=== PATIENT | male | born 1950 | race Caucasian/White ===

== ENCOUNTER 2016-11-20 12:10 | Emergency (ER) | payer MEDICARE ==
[2016-11-20 13:27] LABS: Hematocrit 40.7 % (42.0-52.0); Hemoglobin 13.2 gm/dL (13.5-18.0); Mean Cell Volume 93.1 fl (78-100); Mean Corpuscular Hemoglobin 30.2 pg (27-31); Mean Corpuscular Hgb Conc 32.4 g/dl (32-36); Mean Platelet Volume 9.8 fl (6.0-9.5); Neutrophil # 4.9 K/mm3 (1.3-6.0); Neutrophil % 74.7 % (42-75.0); Platelet Count 195 K/mm3 (150-450); Red Blood Count 4.37 M/mm3 (4.7-6.0); Red Cell Distribution Width 14.5 % (11.5-14.0); White Blood Count 6.5 K/mm3 (4.0-10.5)
[2016-11-20 13:35] LABS: Prothrombin Time (Patient) 19.3 Seconds (9.4-11.4)
[2016-11-20] MEDS ORDERED: ALBUTEROL SULFATE/IPRATROPIUM 3 ML NEBU IH ONE ×2 (13:35→13:43)
[2016-11-20 13:36] LABS: INR 1.86 INR (0.90-1.10); Partial Thrombolplastin Time 36.2 Seconds (24-32)
[2016-11-20 13:45] LABS: ALT 44 U/L (19-67); AST 27 U/L (0-48); Albumin * 3.3 gm/dl (3.4-5.0); Alkaline Phosphatase * 132 U/L (50-170); Anion Gap 13.1 mmol/L (6.8-13.8); BNP * 961 pg/mL (5-350); BUN/Creatinine Ratio 24.2 (9.0-21.6); Bilirubin, Total 0.7 mg/dL (0.0-1.1); Blood Urea Nitrogen 39 mg/dL (6-23); Ca. Corrected For Albumin 9.5 mg/dL (8.4-10.2); Calcium * 9.3 mg/dL (7.9-10.9); Carbon Dioxide 32.3 mmol/L (24-32.6); Chloride 99 mmol/L (97-106); Glucose * 278 mg/dL (70-110); Potassium 5.4 mmol/L (3.4-4.6); Sodium 139 mmol/L (132-142); Total Protein 7.5 gm/dL (6.2-8.2)
[2016-11-20 13:52] LABS: Troponin I Less than 0.017 ng/ml (0.00-0.10)
[2016-11-20] MEDS ORDERED: CEFEPIME HCL 1 GM in DEXTROSE 5 % IN WATER 100 ML IV ONE ×2 (14:35)
[2016-11-20] MEDS ORDERED: LEVOFLOXACIN/D5W 750 MG in Premix Bag 1 BAG IV ONE (14:35)
--- NOTE | 2016-11-20 14:40 | ERNOTE ---
Dyspnea - Date Date of Service: 11/20/16 - General Presenting Symptoms: shortness of breath Time Seen by Provider: 11/20/16 13:05 Source: patient Exam Limitations: no limitations - Immun/Allergies/Home Medications Immunizations: IMMUNIZATION HX Immunizations Up to Date Yes History of Influenza Vaccine No Hx Pneumococcal Vaccination Yes Allergies/Adverse Reactions: Allergies atenolol Allergy (Verified 11/20/16 12:59) enoxaparin sodium [From Lovenox] Allergy (Verified 11/20/16 12:59) gabapentin Allergy (Verified 11/20/16 12:59) Home Medications: HOME MEDICATIONS Allopurinol [Zyloprim] 300 mg PO DAILY 10/25/16 [Last Taken Unknown] Carvedilol [Coreg] 25 mg PO BID 10/25/16 [Last Taken Unknown] Glimepiride [Amaryl] 2 mg PO DAILY 10/25/16 [Last Taken Unknown] Polyethylene Glycol 3350 [Miralax] 17 gm PO PRN PRN 10/25/16 [Last Taken Unknown ] Ropinirole HCl 5 mg PO HS 10/25/16 [Last Taken Unknown] Simvastatin 40 mg PO HS 10/25/16 [Last Taken Unknown] Spironolactone [Aldactone] 25 mg PO BID 10/25/16 [Last Taken Unknown] Tamsulosin HCl [Flomax] 0.4 mg PO DAILY 10/25/16 [Last Taken Unknown] Aspirin [Aspirin Enteric Coated] 81 mg PO DAILY 11/20/16 [Last Taken Unknown] Levofloxacin [Levaquin] 750 mg PO DAILY #13 tab 11/20/16 [Last Taken Unknown] Lisinopril [Zestril] 10 mg PO DAILY 11/20/16 [Last Taken Unknown] Metolazone [Zaroxolyn] 2.5 mg PO DAILY PRN 11/20/16 [Last Taken Unknown] Potassium Chloride [Klor-Con M20] 20 meq PO DAILY 11/20/16 [Last Taken Unknown] Prednisone [Deltasone] 1.5 tab PO BID #42 tablet 11/20/16 [Last Taken Unknown] Terazosin HCl [Hytrin] 1 mg PO DAILY 11/20/16 [Last Taken Unknown] Torsemide [Demadex] 80 mg PO BID 11/20/16 [Last Taken Unknown] Warfarin Sodium [Coumadin] 2.5 mg PO TUFR 11/20/16 [Last Taken Unknown] Warfarin Sodium [Coumadin] 5 mg PO 11/20/16 [Last Taken Unknown] oxyCODONE HCL/ACETAMINOPHEN [Percocet 5 MG/325 MG] 2 tab PO QID PRN 11/20/16 [ Last Taken Unknown] - History of Present Illness Narrative: This is a 66-year-old man with both COPD and congestive heart failure. For the last 2 weeks he has been having worsening redness of breath and cough, productive only of white phlegm. He has not really been weighing himself daily , so he doesn't know what his weights been doing. He has not had a fever. He is concerned that he has pneumonia. He came to the emergency room by private vehicle today because of the worsening of his condition. Severity: moderate Treatment ACCOUNT REVIEW SPECIALIST: by patient, albuterol Initiating event: Reports: unknown Frequency of episodes: Reports: occassional episodes Modifying Factors - (Improves): Reports: nothing Modifying Factors (Worsens): Reports: activity, coughing Associated Symptoms-Dyspnea: Reports: cough, wheezing, lightheadedness Prior Treatment: Reports: recently seen Review of Systems - Review of Systems Constitutional: Present: malaise EYE: Present: no symptoms reported ENT: Present: no symptoms reported Respiratory: Present: See HPI Cardiology: Present: See HPI Gastrointestinal/Abdominal: Present: no symptoms reported Genitourinary: Present: no symptoms reported Musculoskeletal: Present: no symptoms reported Skin: Present: no symptoms reported Neurological: Present: no symptoms reported Endocrine: Present: no symptoms reported Hematologic/Lymphatic: Present: no symptoms reported Psych: Present: no symptoms reported All Other Systems: All systems neg except as marked - Patient's Past Medical History Patient History - Medical: Diabetes Type 2 Patient History - Cardiac/Respiratory: Atrial Fibrillation, CHF, CVA/Stroke, Hypertension, Hyperlipidemia, Myocardial Infarction, Sleep Apnea Patient History - Cancer: No Hx of Cancer Patient History - Surgical Procedures: Appendectomy, Cardiac stent, Pacemaker, Other - Family History Mother Family History - Medical: Diabetes Type 2 Family History - Cardiac/Respiratory: Hypertension - Social History Living Situations: home Smoking Status: Never smoker Alcohol Use: none Drug Use: none Physical Exam - Physical Exam General Appearance: Present: wd/wn, alert, mild distress, obese Eye Exam: Normal inspection: bilateral, PERRL: bilateral, EOMI: bilateral Ears, Nose, Throat: Present: normal ENT inspection, hearing grossly normal Neck: Present: normal inspection, nontender Respiratory: Present: decreased breath sounds, wheezing Cardiovascular/Chest: Present: regular rate, rhythm, no murmur Gastrointestinal/Abdominal: Present: normal bowel sounds, nontender, nondistended, soft, no organomegaly Back Exam: Present: normal inspection Extremity Exam: Present: pedal edema Neurological Exam: Present: alert, oriented, normal mood/affect Skin Exam: Present: normal color, warm/dry ED Progress - Results and Orders Patient's Lab Results:: I have reviewed the patient's lab results. - Vital Signs Patient's Vital Signs:: I have reviewed the patient's vital signs. Vital Signs: Vital Signs 11/20/16 11/20/16 11/20/16 12:51 13:44 13:59 Temperature 35.7 C L Pulse Rate 66 67 108 H Respiratory 18 18 16 Rate Blood Pressure 119/68 136/50 O2 Sat by Pulse 93 94 94 Oximetry 11/20/16 14:14 Temperature Pulse Rate 71 Respiratory 16 Rate Blood Pressure 102/55 O2 Sat by Pulse 96 Oximetry - EKG EKG read: Interp. by me - electronically paced rhythm - X-Ray X-Ray #1 X-Ray: chest Interpretation: Reviewed by me - CXR is non acute. - Progress/Reassessment Chief Complaint: Dyspnea Progress:: Improved Departure Clinical Impression: Acute exacerbation of COPD with asthma, Lactic acidosis - Departure Disposition: Home self-care Condition: Good Instructions: Chronic Obstructive Pulmonary Disease Exacerbation, [id number] Additional Instructions: Followup with Dr. Jones end of next week. Call early Tuesday for an appt at the end of the week. Obtain an EXTRA protime test on Tuesday morning. Referrals: Skyler Mi MD [Primary Care Provider] - Prescriptions: Levofloxacin [Levaquin] 750 mg PO DAILY #13 tab Prednisone [Deltasone] 1.5 tab PO BID #42 tablet
[2016-11-20] MEDS: NORMAL SALINE 1,000 ML IV SCH ×2 (15:09→16:36)
[2016-11-20] MEDS ORDERED: ALBUTEROL SULFATE 2.5 MG/0.5 ML VIAL.NEB IH ONE ×3 (15:47→16:09)
[2016-11-20 17:01] VITALS: BP 137/104
== END 2016-11-20 17:32 | disposition home or self-care (01) ==
LOC: ER 12:10
DX: J44.1 Chronic obstructive pulmonary disease with (acute) exacerbation (principal); J45.901 Unspecified asthma with (acute) exacerbation; E87.2 Acidosis; Z79.01 Long term (current) use of anticoagulants; I10 Essential (primary) hypertension; I48.91 Unspecified atrial fibrillation; I50.9 Heart failure, unspecified; I63.9 Cerebral infarction, unspecified; E78.5 Hyperlipidemia, unspecified; E11.9 Type 2 diabetes mellitus without complications; Z95.5 Presence of coronary angioplasty implant and graft; Z95.0 Presence of cardiac pacemaker

== ENCOUNTER 2016-12-27 10:10 | Emergency (ER) | payer MEDICARE ==
[2016-12-27] MEDS ORDERED: ONDANSETRON HCL/PF 2 MG/ML VIAL ONE (10:21)
[2016-12-27] MEDS ORDERED: ONDANSETRON 4 MG TAB.RAPDIS ONE (10:23)
--- OUTSIDE RECORDS SUMMARY | 2016-12-27 10:24 | XMS REPORT | Continuity of Care Document ---
:1950 Author Organization [facility] Address [place] [address] Phone [phone] Care Team Providers Name Role Phone Skyler Jones Primary Care Provider [phone] Source Comments This disclosure is being made pursuant to the Care Everywhere program, applicable federal and state laws, and may not contain all informaitonavailable regarding this patient.[facility] ([facility] Active Allergies and Adverse Reactions Allergen Noted Date Severity Reactions Comments Atenolol 11/09/2016 Unknown Enoxaparin 11/09/2016 Unknown Gabapentin 11/09/2016 Unknown Current Medications Prescription Sig. Disp. Refills Start Date End Date Status allopurinol 100 mg Take 300 mg by Active tablet mouth daily. carvedilol 25 mg tablet Take 25 mg by Active mouth 2 times daily with meals. cyclobenzaprine PO Take 30 mg by Active mouth 2 times daily. glimepiride 2 mg tablet Take 2 mg by Active mouth every morning. metOLazone 2.5 mg Take 2.5 mg by Active tablet mouth daily. Prn weight gain polyethylene glycol Take 17 g by Active 3350 17 gram packet mouth daily as needed. potassium chloride 20 Take 20 mEq by Active mEq tablet mouth daily. rOPINIRole 5 mg tablet Take 5 mg by Active mouth at bedtime. simvastatin 40 mg Take 40 mg by Active tablet mouth every evening. spironolactone 25 mg Take 25 mg by Active tablet mouth 2 times daily. terazosin 1 mg capsule Take 1 mg by Active mouth at bedtime. warfarin 5 mg tablet Take 5 mg by Active mouth daily. As instructed albuterol-ipratropium Use 3 mL by Active 2.5-0.5 mg/3 mL inhalation every inhalation solution 6 hours as needed. OXYCODONE Take by mouth as Active HCL/ACETAMINOPHEN needed. (PERCOCET PO) aspirin 81 mg EC tablet Take 1 tablet (81 11 11/09/2016 Active mg total) by mouth daily. torsemide 100 mg tablet Take 1 tablet 30 tablet 11/09/2016 Active (100 mg total) by mouth daily. lisinopril 10 mg tablet Take 1 tablet (10 30 tablet 11/09/2016 Active mg total) by mouth daily. Active Problems Problem Noted Date Coronary artery disease Myocardial infarction, old Pacemaker Atrial fibrillation Diabetes mellitus Hypertension Hyperlipidemia Ischemic cardiomyopathy Most Recent Encounters Date Type Specialty Providers Description 12/21/2016 Office Visit Heart and Alley Huber MD Chief Comp: Patient Reported Reason For Visit 11/24/2016 Telephone Cardiac Rehabilitation Alley Jimenez Chief Comp: Results 11/09/2016 Office Visit Heart and Alley Huber MD Dx: Coronary artery disease involving [place] coronary artery of [place] heart without angina pectoris (Primary Dx) Social History Tobacco Use Types Packs/Day Years Used Date Never Smoker Smokeless Tobacco: Never Used Last Filed Vital Signs Vital Sign Reading Time Taken Blood Pressure 118/58 11/09/2016 11:37 AM CONSULTING SOFTWARE ENGINEER Pulse 72 11/09/2016 11:37 AM CONSULTING SOFTWARE ENGINEER Temperature - - Respiratory Rate - - Height 1.829 m (6') 11/09/2016 11:37 AM CONSULTING SOFTWARE ENGINEER Weight 146.965 kg (324 lb) 11/09/2016 11:37 AM CONSULTING SOFTWARE ENGINEER Body Mass Index 43.93 11/09/2016 11:37 AM CONSULTING SOFTWARE ENGINEER Oxygen Saturation - - Plan of Care Date Type Specialty Providers Description 01/18/2017 Appointment Heart and Vascular Alley Jimenez MD Chief Comp: Patient [address] [employer] [place] [address] Visit [phone] (Fax) 01/18/[address] [facility] Alley Jmienez MD Chief Comp: Patient [address] [employer] [place] [address] Visit [phone] (Fax) 02/15/2017 Appointment Alley Garrison MD [address] [place] [address] [phone] (Fax) Chief Comp: Patient Kenneth Vasquez MD [address] [place] [address] [phone] (Fax) Reported Reason For Visit Health Maintenance Due Date Last Done Comments HCV Screening 1950 Hepatitis B Vaccine (1 of 3 - Primary Series) 1950 Tdap Vaccine 1962 DIABETIC: Cholesterol 1969 Diabetic: Hdl 1969 DIABETIC: Hemoglobin A1C 1969 Diabetic: Ldl 1969 DIABETIC: Microalbumin 1969 DIABETIC: Triglycerides 1969 Td Vaccine 1969 Colonoscopy 07/03/2001 Prostate Cancer Screening 2001 Zoster Vaccine 2011 Influenza Vaccine: Seasonal (#1) 05/31/2016 Pneumococcal Vaccine (1 of 2 - PCV13) 2016 DIABETIC: Foot Exam 11/06/2016 DIABETIC: Retinal Eye Exam 11/06/2016 Results from Last 3 Months Not on file
[2016-12-27 10:56] LABS: Hematocrit 45.3 % (42.0-52.0); Hemoglobin 14.7 gm/dL (13.5-18.0); Mean Cell Volume 92.1 fl (78-100); Mean Corpuscular Hemoglobin 29.9 pg (27-31); Mean Corpuscular Hgb Conc 32.5 g/dl (32-36); Mean Platelet Volume 9.9 fl (6.0-9.5); Neutrophil # 9.8 K/mm3 (1.3-6.0); Neutrophil % 82.4 % (42-75.0); Platelet Count 252 K/mm3 (150-450); Red Blood Count 4.92 M/mm3 (4.7-6.0); Red Cell Distribution Width 14.5 % (11.5-14.0); White Blood Count 11.9 K/mm3 (4.0-10.5)
--- NOTE | 2016-12-27 11:06 | ERNOTE ---
Neuro HPI ER Record Date of Service: 12/27/16 Presenting Symptoms: parasthesia Time Seen by Provider: 12/27/16 10:16 Source: patient Exam Limitations: no limitations Immunizations: IMMUNIZATION HX Immunizations Up to Date Yes History of Influenza Vaccine No Hx Pneumococcal Vaccination Yes Allergies/Adverse Reactions: Allergies Allergy/AdvReac Type Severity Reaction Status Date / Time atenolol Allergy Verified 11/20/16 12:59 enoxaparin sodium Allergy Verified 11/20/16 12:59 [From Lovenox] gabapentin Allergy Verified 11/20/16 12:59 Home Medications: HOME MEDICATIONS Allopurinol [Zyloprim] 300 mg PO DAILY 10/25/16 [Last Taken Unknown] Carvedilol [Coreg] 25 mg PO BID 10/25/16 [Last Taken Unknown] Glimepiride [Amaryl] 2 mg PO DAILY 10/25/16 [Last Taken Unknown] Polyethylene Glycol 3350 [Miralax] 17 gm PO PRN PRN 10/25/16 [Last Taken Unknown ] Ropinirole HCl 5 mg PO HS 10/25/16 [Last Taken Unknown] Simvastatin 40 mg PO HS 10/25/16 [Last Taken Unknown] Spironolactone [Aldactone] 25 mg PO BID 10/25/16 [Last Taken Unknown] Tamsulosin HCl [Flomax] 0.4 mg PO DAILY 10/25/16 [Last Taken Unknown] Aspirin [Aspirin Enteric Coated] 81 mg PO DAILY 11/20/16 [Last Taken Unknown] Levofloxacin [Levaquin] 750 mg PO DAILY #13 tab 11/20/16 [Last Taken Unknown] Lisinopril [Zestril] 10 mg PO DAILY 11/20/16 [Last Taken Unknown] Metolazone [Zaroxolyn] 2.5 mg PO DAILY PRN 11/20/16 [Last Taken Unknown] Potassium Chloride [Klor-Con M20] 20 meq PO DAILY 11/20/16 [Last Taken Unknown] Prednisone [Deltasone] 1.5 tab PO BID #42 tablet 11/20/16 [Last Taken Unknown] Terazosin HCl [Hytrin] 1 mg PO DAILY 11/20/16 [Last Taken Unknown] Torsemide [Demadex] 80 mg PO BID 11/20/16 [Last Taken Unknown] Warfarin Sodium [Coumadin] 2.5 mg PO TUFR 11/20/16 [Last Taken Unknown] Warfarin Sodium [Coumadin] 5 mg PO 11/20/16 [Last Taken Unknown] oxyCODONE HCL/ACETAMINOPHEN [Percocet 5 MG/325 MG] 2 tab PO QID PRN 11/20/16 [ Last Taken Unknown] - History of Present Illness Narrative: Patient presents to the ER after having had a recent fall. Patient states that he does have all falls frequently however normally he is able to get up off the floor however this time he had difficulty arising and and an ambulance had to be called to provide assistance. He states that he has chronic neuropathy of unknown origin because of this and the numbness in his feet he has he says is the source for his falling. He states that he did bump his head and he does have a low-grade headache subsequent to this and he further states he is on anticoagulant therapy. Onset: other - upon arising Severity: mild Context: fall, injury - head - Character of Deficits Altered sensation: Present: other - chronic numbness in his feet Baseline Cognition: Present: alert, oriented x 4 Associated Symptoms: Reports: headache Prior Treament: Reports: treated by physician, similar symptoms before Review of Systems - Review of Systems Constitutional: Present: See HPI EYE: Present: no symptoms reported ENT: Present: no symptoms reported Respiratory: Present: no symptoms reported Cardiology: Present: no symptoms reported Gastrointestinal/Abdominal: Present: no symptoms reported Genitourinary: Present: no symptoms reported Musculoskeletal: Present: no symptoms reported Skin: Present: no symptoms reported Neurological: Present: numbness - chronic Endocrine: Present: no symptoms reported Hematologic/Lymphatic: Present: no symptoms reported Psych: Present: no symptoms reported - Patient's Past Medical History Patient History - Medical: Diabetes Type 2, Other - neuropathy Patient History - Cardiac/Respiratory: Atrial Fibrillation, CHF, CVA/Stroke, Myocardial Infarction, Pneumonia Patient History - Cancer: No Hx of Cancer Patient History - Surgical Procedures: Appendectomy, Cardiac stent, Pacemaker, Other Patient History - Other: None - Family History Mother Family History - Medical: Diabetes Type 2 Family History - Cardiac/Respiratory: Hypertension - Social History Living Situations: home Abuse History: No History of abuse Psych History: No pertinent hx Alcohol Use: none Drug Use: none - Immunizations Immunizations Up to Date: Yes Hx Pneumococcal Vaccination: Yes History of Influenza Vaccine: No Physical Exam - Physical Exam General Appearance: Present: wd/wn, alert, mild distress Eye Exam: Normal inspection: bilateral, PERRL: bilateral Ears, Nose, Throat: Present: normal ENT inspection, hearing grossly normal, normal pharynx Neck: Present: normal inspection, nontender Respiratory: Present: no respiratory distress, normal breath sounds, no accessory muscle use, chest nontender, lungs clear Cardiovascular/Chest: Present: regular rate, rhythm, no murmur, normal peripheral pulses Gastrointestinal/Abdominal: Present: normal bowel sounds, nontender, nondistended, soft, no organomegaly Rectal Exam: Present: deferred Back Exam: Present: normal inspection, normal range of motion Extremity Exam: Present: normal inspection, non-tender, no edema, normal range of motion Neurological Exam: Present: alert, oriented, normal mood/affect, other - chronic numbness to both feet Skin Exam: Present: normal color, warm/dry Lymphatic Exam: Present: no adenopathy [place] Coma Scale - Assess Eye Opening: Spontaneous Motor: Obeys Commands Verbal: Oriented - Total Coma Scale Total: 15 ED Progress - Results and Orders Patient's Lab Results:: I have reviewed the patient's lab results. - Vital Signs Patient's Vital Signs:: I have reviewed the patient's vital signs. Vital Signs: Vital Signs 12/27/16 12/27/16 10:21 10:44 Temperature 35.9 C L Pulse Rate 88 61 Respiratory 28 H Rate Blood Pressure 137/104 O2 Sat by Pulse 93 Oximetry - EKG EKG: other - paced - X-Ray X-Ray #1 X-Ray: chest Interpretation: Reviewed by me - CT/Ultrasound CT/Ultrasound Narrative: Patient's CT results were reviewed with radiologist and patient was found to not have any mass effect or hemorrhagic CVA. Old posterior CVA appears to have been present but no acute findings were noted at this time - Progress/Reassessment Chief Complaint: CerebroVascular Accident Progress:: Unchanged - Transfer of Care Expected Disposition: Admit Plan - Plan Plan: While the patient does not appear to have had a hemorrhagic CVA certainly a TIA is more than reasonable to entertain. Patient however is in acute renal failure as well as being hyperkalemic and that these will need to be treated patient be admitted to a monitored bed for both adjusting of his potassium levels as well as a possible nephrology consult regarding his acute renal failure. A Zarate catheter was placed in the patient also to make sure that there is no post renal obstruction present. Departure Clinical Impression: Hyperkalemia Acute renal failure (ARF) Qualifiers: Acute renal failure type: unspecified Qualified Code(s): N17.9 - Acute kidney failure, unspecified TIA (transient ischemic attack) Qualifiers: Transient cerebral ischemia type: unspecified Qualified Code(s): G45.9 - Transient cerebral ischemic attack, unspecified - Departure Disposition: [facility] Condition: Fair - Critical Care Total Time (mins): 40 Critical Care: THE patient does have chronic neuropathy which could be the source of it his frequent falling we had to do emergent intervention to attempt to bring the potassium down as this could be leading to a cardiac dysrhythmia as well.
[2016-12-27 11:07] LABS: Prothrombin Time (Patient) 19.7 Seconds (9.4-11.4)
[2016-12-27 11:08] LABS: INR 1.89 INR (0.90-1.10)
[2016-12-27 11:10] LABS: Albumin * 3.5 gm/dl (3.4-5.0); Anion Gap 16.8 mmol/L (6.8-13.8); BUN/Creatinine Ratio 26.7 (9.0-21.6); Bilirubin, Total 1.1 mg/dL (0.0-1.1); Ca. Corrected For Albumin 10.2 mg/dL (8.4-10.2); Calcium * 10.1 mg/dL (7.9-10.9); Carbon Dioxide 26.6 mmol/L (24-32.6); Potassium 6.4 mmol/L (3.4-4.6); Total Protein 8.1 gm/dL (6.2-8.2)
[2016-12-27 11:16] LABS: Urine Bilirubin Negative (NEGATIVE); Urine Blood Negative /ul (NEGATIVE); Urine Ketone Negative (NEGATIVE); Urine Nitrite Negative (NEGATIVE); Urine Protein Negative (NEGATIVE); Urine Specific Gravity 1.015 SP.GR. (1.005-1.030); Urine Urobilinogen Normal (NORMAL)
[2016-12-27] MEDS ORDERED: CALCIUM GLUCONATE 4.65 MEQ/10 ML VIAL IV ONE ×4 (11:23→19:00)
[2016-12-27] MEDS ORDERED: DEXTROSE 50%-WATER 50 ML SYRG IV ONE ×2 (11:23→18:06)
[2016-12-27] MEDS ORDERED: SODIUM POLYSTYRENE SULFON/SORB 15 G/60 ML BTL PO ONE ×3 (11:23→18:07)
[2016-12-27] MEDS ORDERED: INSULIN REGULAR, HUMAN 100 UNITS/ML VIAL IV ONE ×2 (11:23→18:06)
[2016-12-27] MEDS ORDERED: SODIUM BICARBONATE 1 MEQ/ML SYRG IV ONE ×3 (11:24→18:07)
[2016-12-27 11:29] LABS: Urine Appearance Clear; Urine Color Yellow; Urine RBC None Seen /hpf (0-5); Urine WBC None Seen /hpf (0-5)
[2016-12-27 11:30] LABS: Urine Bacteria None Seen
[2016-12-27] MEDS ORDERED: SODIUM POLYSTYRENE SULFON/SORB 15 G/60 ML BTL ONE ×2 (11:30→19:01)
[2016-12-27] MEDS ORDERED: INSULIN REGULAR, HUMAN 100 UNITS/ML VIAL ONE (11:31)
[2016-12-27] MEDS ORDERED: DEXTROSE 50%-WATER 50 ML SYRG ONE ×2 (11:31→19:01)
--- OUTSIDE RECORDS SUMMARY | 2016-12-27 12:17 | XMS REPORT | Continuity of Care Document ---
:1950 Author Organization [facility] ([facility]) [place] [address] Phone [phone] Care Team Providers Name Role Phone Skyler Jones Primary Care Provider [phone] Source Comments This disclosure is being made pursuant to the Care Everywhere program, applicable federal and state laws, and may not contain all informaitonavailable regarding this patient.[facility] ([facility]) Active Allergies and Adverse Reactions Allergen Noted [...] Huber MD Dx: Coronary artery disease involving [place] coronary artery of [place] heart without angina pectoris (Primary Dx) Social History Tobacco Use Types Packs/Day Years Used Date Never Smoker Smokeless Tobacco: Never Used Last Filed Vital Signs Vital Sign Reading Time Taken Blood Pressure 118/58 11/09/2016 11:37 AM SNOW REMOVAL SUPERVISOR Pulse 72 11/09/2016 11:37 AM SNOW REMOVAL SUPERVISOR Temperature - - Respiratory Rate - - Height 1.829 m (6') 11/09/2016 11:37 AM SNOW REMOVAL SUPERVISOR Weight 146.965 kg (324 lb) 11/09/2016 11:37 AM SNOW REMOVAL SUPERVISOR Body Mass Index 43.93 11/09/2016 11:37 AM SNOW REMOVAL SUPERVISOR Oxygen Saturation - - Plan of Care Date Type Specialty Providers Description 01/18/2017 Appointment Heart and Vascular Alley Jimenez MD Chief Comp: Patient [address] [address] Visit [phone] (Fax) 01/18/[address] [facility] Alley Jimenez MD Chief Comp: Patient [address] [place] [address] Visit [phone] (Fax) 02/15/2017 Appointment Alley Garrison MD [address] [place] [address] [phone] (Fax) Chief Comp: Patient Kenneth Vasquez MD [address] [place] [address] [phone] (Fax) Reported Reason For Visit Health Maintenance [...]
[2016-12-27 13:10] LABS: Urine Bilirubin Negative (NEGATIVE); Urine Blood Negative /ul (NEGATIVE); Urine Ketone Negative (NEGATIVE); Urine Nitrite Negative (NEGATIVE); Urine Protein Negative (NEGATIVE); Urine Urobilinogen Normal (NORMAL)
[2016-12-27 13:11] LABS: Urine Appearance Clear; Urine Color Yellow
[2016-12-27 13:12] LABS: Urine Bacteria None Seen; Urine RBC None Seen /hpf (0-5); Urine WBC None Seen /hpf (0-5)
[2016-12-27] MEDS ORDERED: NORMAL SALINE 1,000 ML IV ONE (13:17)
[2016-12-27] MEDS ORDERED: NORMAL SALINE 500 ML in NORMAL SALINE 1,000 ML IV ONE (13:43)
[2016-12-27] MEDS ORDERED: NOREPINEPHRINE BITARTRATE 4 MG in DEXTROSE 5 % IN WATER 496 ML IV PRN ×2 (13:56)
[2016-12-27] MEDS ORDERED: NORMAL SALINE 1,000 ML in NORMAL SALINE 1,000 ML IV ONE (15:22)
--- NOTE | 2016-12-27 16:35 | OR ---
Anesthesia Procedure Note - Anesthesia Procedure Note Date of Service: 12/27/16 Narrative: Vital Signs - Last Taken Temp 35.5 C L 12/27/16 12:41 Pulse 121 H 12/27/16 14:16 Resp 21 H 12/27/16 14:16 BP 102/51 12/27/16 14:16 Pulse Ox 93 12/27/16 14:16 O2 Oxygen Delivery Method Nasal Cannula 12/27/16 16:30 ANESTHESIA PROCEDURE NOTE Date of Procedure: 12/27/2016. Time of procedure: 1500. Performed by: Howard Lyles CRNA Plant Protection Supervisor: None. Preprocedure diagnosis: Need for central line placement. Post procedure diagnosis: Same. Procedure: Unsuccessful ultrasound-guided PICC line insertion. Indications: Is a 66-year-old male in the emergency room who is in need of a peripherally inserted central line for IV and vasopressor therapy. Findings: See below. Details of the procedure: Under ultrasound guidance the right cephalic vein was visualized. Skin over the intended target site was cleansed with ChloraPrep. The patient was draped in sterile fashion. The skin over the intended target site was anesthetized with 1% lidocaine. Under direct ultrasound visualization the vein was cannulated with a 20-gauge IV catheter. Dark red blood was noted from the catheter. A 0.45 mm guidewire was inserted through the IV catheter and IV catheter was removed intact. A skin susan was made at the guidewire insertion site with a scalpel. The 5 Malay vessel dilator was inserted over the guidewire and the guidewire was removed intact. Dark red blood was noted from the vessel dilator. The PICC line was inserted to a depth of 52 cm with some difficulty and the vessel dilator was peeled away. Dark red blood was noted from both ports of the PICC line. PICC line was flushed with sterile normal saline solution. A sterile dressing was then applied over the PICC line insertion site. EBL: Minimal. Fluids: N/A. Specimen: N/A. Post procedure condition: The patient tolerated the procedure well. No complications were noted. Chest x-ray revealed the placement of the PICC line to be in the superior vena cava, however there was a kink in the catheter proximal to the catheter tip. I discussed the findings with the radiologist and determined that it would be best to remove the catheter. The catheter was then removed intact by the emergency room nurse and a sterile dressing was applied to the insertion site. Thank you for this consultation. Howard Lyles CRNA
[2016-12-27 17:47] LABS: Anion Gap 20.1 mmol/L (6.8-13.8); BUN/Creatinine Ratio 25.6 (9.0-21.6); Calcium * 9.3 mg/dL (7.9-10.9); Carbon Dioxide 21.9 mmol/L (24-32.6); Estimated Creat Clear 17.8
[2016-12-27] MEDS ORDERED: NORMAL SALINE IV ONE (18:14)
[2016-12-27] MEDS ORDERED: [UNRECOGNIZED DRUG - OTHER] IV ONE (18:14)
[2016-12-27] MEDS ORDERED: ALBUTEROL SULFATE 2.5 MG/0.5 ML VIAL.NEB IH SCH (18:15)
[2016-12-27] MEDS ORDERED: ALBUTEROL SULFATE 2.5 MG/0.5 ML VIAL.NEB IH ONE (19:32)
[2016-12-27 23:09] VITALS: BP 98/50
== END 2016-12-27 20:05 | disposition short-term general hospital (02) ==
LOC: ER 10:10 → UNDOADMIN 12:12 → MS 12:12 → SCU 12:41 → MS 12:41 → ER 20:05
PROC: 0T9B70Z Drainage of Bladder with Drainage Device, Via Natural or Artificial Opening (ICD-10-PCS; principal; 2016-12-27)
DX: E87.5 Hyperkalemia (principal); N17.9 Acute kidney failure, unspecified; G45.9 Transient cerebral ischemic attack, unspecified

== ENCOUNTER 2017-02-26 20:02 | Observation (INO) | payer MEDICARE ==
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
--- OUTSIDE RECORDS SUMMARY | 2017-02-26 20:21 | XMS REPORT | Continuity of Care Document ---
:1950 Author Organization [facility] ([facility]) Address [address] [place] [address] Phone [phone] Care Team Providers Name Role Phone Skyler Jones Primary Care Provider [phone] Source Comments This disclosure is being made pursuant to the Care Everywhere program, applicable federal and state laws, and may not contain all informaitonavailable regarding this patient.[facility] ([facility]) Active Allergies and Adverse Reactions Allergen Noted Date Severity Reactions Comments Atenolol 11/09/2016 Unknown Enoxaparin 11/09/2016 Unknown Gabapentin 11/09/2016 Unknown Current Medications Prescription Sig. Disp. Refills Start Date End Date Status carvedilol 25 mg tablet Take 25 mg by mouth 2 Active times daily. glimepiride 2 mg tablet Take 4 mg by mouth Active every morning. polyethylene glycol Take 17 g by mouth Active 3350 17 gram packet daily as needed. rOPINIRole 5 mg tablet Take 5 mg by mouth at Active bedtime. simvastatin 40 mg Take 40 mg by mouth Active tablet every evening. spironolactone 25 mg Take 25 mg by mouth Active tablet daily. warfarin 5 mg tablet Take 5 mg by mouth 4 Active times weekly. As instructed albuterol-ipratropium Use 3 mL by Active 2.5-0.5 mg/3 mL inhalation every 4 inhalation solution hours as needed. aspirin 81 mg EC tablet Take 1 tablet (81 mg 11 11/09/2016 Active total) by mouth daily. amitriptyline 10 mg Take 20 mg by mouth 2 Active tablet times daily. tamsulosin 0.4 mg Take 0.4 mg by mouth Active capsule daily. SITagliptin (JANUVIA) Take 100 mg by mouth Active 100 mg tablet daily. allopurinol 300 mg Take 300 mg by mouth Active tablet daily. cyclobenzaprine 10 mg Take 20 mg by mouth Active tablet at bedtime. torsemide 20 mg tablet Take 80 mg by mouth 2 Active times daily. metolazone PO Take by mouth as Active needed. oxyCODONE-acetaminophen Take 1 tablet by Active 5-325 mg per tablet mouth every 4 hours as needed. Do NOT exceed 4000 mg of acetaminophen per 24 hours. terazosin PO Take by mouth daily. Active gabapentin PO Active Active Problems Problem Noted Date JAXSON on CPAP 02/15/2017 Heart block AV complete, secondary to AV node ablation 02/15/2017 Abdominal pain 12/29/2016 Overview: Colonoscopy today with GI Acute kidney injury superimposed on chronic kidney disease 12/28/2016 Overview: Continue to monitor, consult nephrology. No dialysis recommended, renal US with doppler Coronary artery disease Myocardial infarction, old Biventricular ICD (implantable cardioverter-defibrillator) in place, [employer]tr[employer] Persistent atrial fibrillation Diabetes mellitus Hypertension Hyperlipidemia Ischemic cardiomyopathy Overview: CARDIOVASCULAR PROCEDURES ECHO Echo:Mild to moderately decreased LV systolic function. LV Ejection Fraction= 40-50% Apical segments with akinesis to dyskinesis and no obvious thrombus. The aortic Sinus(es) of Valsalva are moderately dilated. 12/28/2016 Resolved Problems Problem Noted Date Resolved Date Paced rhythm on manager cardiac 12/29/2016 01/18/2017 Overview: Monitoring with help of EP Hyperkalemia 12/27/2016 01/02/2017 Hypotension 12/27/2016 01/02/2017 Most Recent Encounters Date Type Specialty Providers Description 02/15/2017 Office Visit Alley Oakley MD Dx: Biventricular ICD Vascular Kenneth Vasquez, (implantable MD cardioverter-defibrill AschoOlivia osorio, ator) in place, PRINCIPAL [employer]OUD ARCHITECT Med[employer] (Primary Dx) 01/18/2017 Office Visit Alley Oakley MD Chief Comp: Patient Vascular Reported Reason For Visit 01/18/2017 Office Visit Alley Oakley MD Dx: Ischemic Vascular cardiomyopathy (Primary Dx) 01/04/2017 Nurse Triage General Care Yessenia Rizvi, Chief Comp: IP Inpatient - Adult procurement manager Follow-up Call 12/28/2016 [facility] Heart and Ema Chavez Chief Comp: Patient Encounter Vascular MD Gloria Reported Reason For Visit 12/27/2016 - [facility] General Care Ahmed, Dx: Hyperkalemia 01/02/2017 Encounter Inpatient - Adult MD Juan (Primary Dx) Deniz Kingston MD Hadder, Brent A, MD Hasan, Yazan Z, MD 12/21/2016 Office Visit Heart and Alley Jimenez MD Chief Comp: Patient Vascular Reported Reason For Visit Social History Tobacco Use Types Packs/Day Years Used Date Never Smoker Smokeless Tobacco: Never Used Last Filed Vital Signs Vital Sign Reading Time Taken Blood Pressure 162/78 02/15/2017 11:33 AM CDT Pulse 66 02/15/2017 11:33 AM CDT Temperature 35.9 C (96.6 F) 01/02/2017 8:00 AM CANNONEER Respiratory Rate 20 01/02/2017 8:00 AM CANNONEER Height 1.829 m (6') 02/15/2017 11:33 AM CDT Weight 142.883 kg (315 lb) 02/15/2017 11:33 AM CDT Body Mass Index 42.71 02/15/2017 11:33 AM CDT Oxygen Saturation 95% 01/02/2017 8:00 AM CANNONEER Plan of Care Date Type Specialty Providers Description 04/21/2017 Appointment Heart and Vascular Alley Jimenez MD Chief Comp: Patient [address] [place] [address] Visit [phone] (Fax) Health Maintenance Due Date Last Done Comments HCV Screening 1950 Hepatitis B Vaccine (1 of 3 - Primary Series) 1950 Tdap Vaccine 1962 DIABETIC: Cholesterol 1969 Diabetic: Hdl 1969 DIABETIC: Hemoglobin A1C 1969 Diabetic: Ldl 1969 DIABETIC: Microalbumin 1969 DIABETIC: Triglycerides 1969 Td Vaccine 1969 Prostate Cancer Screening 2001 Zoster Vaccine 2011 Pneumococcal Vaccine (1 of 2 - PCV13) 2016 DIABETIC: Foot Exam 11/06/2016 DIABETIC: Retinal Eye Exam 11/06/2016 Influenza Vaccine: Seasonal (Season Ended) 2017 Colonoscopy 01/01/2027 01/01/2017 Results from Last 3 Months PT/INR (PROTHROMBIN TIME/INR) VENOUS (01/02/2017 7:50 AM)Only the most recent of4 resultswithin the time period is included. Component Value Range PT (Prothrombin Time) 19(H) 9-12 secs INR 1.9 <4.0 Specimen Blood CBC (COMPLETE BLOOD COUNT) (01/02/2017 7:50 AM)Only the most recent of2 resultswithin the time period is included. Component Value Range WBC Count 10.0 3.7-10.5 K/MM3 RBC Count 4.03(L) 4.50-6.20 M/MM3 Hemoglobin 12.0(L) 13.2-17.7 g/dL Hematocrit 37(L) 40-52 % MCV (Mean Corpuscular Volume) 91 82-99 FL MCH (Mean Corpuscular Hemoglobin) 30 25-35 PG MCHC (Mean Corpuscular Hemoglobin Concentration) 33 32-36 % Platelet Count 211 150-400 K/MM3 MPV (Mean Platelet Volume) 10.4 9.4-12.3 FL RBC Dist Width-STD 47.9(H) 35.1-43.9 FL RBC Distrib Width 14.4 9.0-14.5 % Nucleated RBC 0 /100 WBC Specimen Whole Blood CHEM 7 PANEL (01/02/2017 7:50 AM)Only the most recent of2 resultswithin the time period is included. Component Value Range Sodium 137 135-145 mEq/L Chloride 95 95-107 mEq/L Potassium 4.6 3.5-5.0 mEq/L CO2 29 22-29 mEq/L BUN 24(H) 10-20 mg/dL Creatinine 1.4(H)Comment: 0.6-1.2 mg/dL Creatinine switched to enzymatic method on 03/09/2011.GFR equation switched to IDMS-traceable MDRD equation on 03/09/2011. Calculated GFR values are not valid in clinical settings where serum creatinine is changing. Glucose 139(H)Comment: 65-99 mg/dL The Expert Committee on the Diagnosis and Classification of Diabetes has defined impaired fasting glucose as greater than or equal to 100 mg/dL but less than 126 mg/dL.(Diabetes Care 28 (Suppl 1)S41,2005) Anion Gap 13 8-18 mEq/L Calculated GFR 51(L) >60 mL/min/1.73 m2 Specimen Blood ENDOSCOPY COLONOSCOPY (01/01/2017 10:21 PM) Regina Michael MD 01/01/2017 10:21 PM ENDOSCOPY COLONOSCOPY Flexible sigmoidoscopy Procedure Note Date:12/29/2016 Referring Physician: Mark Agosto Patient: Doyle Lind PCP: Skyler Jones Age: 66 y.o. Sex: maleAttending Staff: Regina Sapp MD : 1950Fellow: none Operation/Procedure:Flexible sigmoidoscopy with biopsy Indications: Hematochezia Colorectal Neoplasm Risks: None Location: [facility] Consent for Operation or Procedure:The risks, benefits, and alternatives of the procedure and sedative medications were discussed with the patient in detail.Potential complications including bleeding, infection, reaction to sedation medication, accidental perforation, or missing lesions were discussed with the patient. All questions were answered.Written consent was obtained.The patient elected to proceed with the procedure as described. Anesthesia: Proceduralist directed. from 15:03 to 15:30. Adverse Events: None Sedation Medications: 1. Midazolam 3mg IV 2. Fentanyl 75mcg IV Procedure Description:Prior to proceeding, the patient's name, date of , and procedure were verified at the time out.The patient was then placed in the left lateral decubitus position and adequate sedation was achieved to proceed. A manual rectal examination was performed. The colonoscopy was advanced to 60 cm and the exam was terminated secondary to the severity of the colitis.The colonoscope was then slowly withdrawn and the mucosa was carefully examined. Excess air and fluid were removed during colonoscope withdrawal and the procedure terminated.The patient was in good condition. Colon Preparation: Adequate to evaluate colitis. However, colitis precluded evaluation for polyps. Ancillary Maneuvers: None Cecum Photograph: None - did not reach cecum Scope Inserted: 15:10 Pathology Specimens:yes Cecum Reached: Endoscopy Complications:None Scope Removed:15:30 The procedure findings are listed below: In the rectum, there was a 3 mm distal polyp that was removed with cold forceps. The mid to distal rectal mucosa was normal. The proximal rectal mucosa and very distal sigmoid mucosa was mildly edematous with loss of vascular pattern. From 25 cm to 30 cm, there was circumferential ulceration with heaped up, very dark violaceous discoloration involving approximately 40-50% of the circumference of the colon. The remainder of the circumference had heaped up yellow ulceration and edema. Biopsies of the violaceous area did not bleed. From 30-35 cm, there were patchy yellow ulcers interspersed with more normal appearing mucosa. The more normal mucosa had some evidence of edema with loss of vascular pattern. From 35 cm, there was circumferential severe colitis with similar violaceous coloration and little to no bleeding with biopsy. The scope was passed to 55 cm into the descending colon and as far as the scope could see (at least another 10-15 cm), there was circumferential ulceration. The scope was withdrawn secondary to the severity of the colitis (see photos in media section). Impression: 1. Severe colitis involving at least the sigmoid and descending colon, ? Ischemia. Did not bleed when biopsied. 2. Diminutive rectal polyp Plan: 1. Surgical consult given severity of disease. 2. Await path results. I, Regina Sapp, performed the entire procedure. Regina Sapp MD Addendum after Pathology Evaluation: 01/01/2017 10:18 PM Pathology: Ischemic colitis Repeat colonoscopy: 3 months Results disclosed by: While inpatient Results for orders placed or performed during the hospital encounter of 12/27/16 URINE CULTURE, REFLEXED Result Value Ref Range Quantitative Culture No growth at 10/999 dilution BLOOD CULTURE Result Value Ref Range Blood Culture No growth to date. Cultures reviewed continuously. Changes will be documented. BLOOD CULTURE Result Value Ref Range Blood Culture No growth to date. Cultures reviewed continuously. Changes will be documented. C. DIFFICILE TOXIN SCREEN Result Value Ref Range C. Difficle GDH Negative Negative C. Difficile Toxin Negative Negative ENTERIC PANEL Result Value Ref Range Campylobacter spp. Not Detected Not Detected Plesiomonas shigelloides Not Detected Not Detected Salmonella spp. Not Detected Not Detected Vibrio (parahaemolyticus, vulnificus and cholerae) Not Detected Not Detected Vibrio cholerae Not Detected Not Detected Yersinia enterocolitica Not Detected Not Detected Enteroaggregative E. coli (EAEC) Not Detected Not Detected Enteropathogenic E. coli (EPEC) Not Detected Not Detected Enterotoxigenic E. coli (ETEC) Not Detected Not Detected Shiga-like toxin-producing E. coli (STEC) Not Detected Not Detected E. coli O157 Not Detected Not Detected, Indeterminate Shigella/Enteroinvasive E. coli (EIEC) Not Detected Not Detected Cryptosporidium Not Detected Not Detected Cyclospora cayetanensis Not Detected Not Detected Entamoeba histolytica Not Detected Not Detected Giardia lamblia Not Detected Not Detected Adenovirus F 40/41 Not Detected Not Detected Astrovirus Not Detected Not Detected Norovirus Not Detected Not Detected Rotavirus Not Detected Not Detected Sapovirus Not Detected Not Detected BASIC METABOLIC PANEL W/ CALCIUM (CHEM 8) Result Value Ref Range Sodium 140 135-145 mEq/L Potassium 6.0 (H) 3.5-5.0 mEq/L Chloride 101 95-107 mEq/L CO2 20 (L) 22-29 mEq/L Anion Gap 19 (H) 8-18 mEq/L BUN 90 (H) 10-20 mg/dL Creatinine 3.5 (H) 0.6-1.2 mg/dL Glucose 195 (H) 65-99 mg/dL Calcium 9.2 8.5-10.5 mg/dL Calculated GFR 18 (L) >60 mL/min/1.73 m2 PT/INR (PROTHROMBIN TIME/INR) VENOUS Result Value Ref Range PT (Prothrombin Time) 25 (H) 9-12 secs INR 2.5 <4.0 PTT (PARTIAL THROMBOPLASTIN TIME) Result Value Ref Range PTT 28 22-31 secs TROPONIN T Result Value Ref Range Troponin-T 0.03 <=0.10 ng/mL LIVER PANEL Result Value Ref Range Bilirubin Total 0.8 <=1.2 mg/dL AST 49 (H) 0-40 U/L ALT 32 0-41 U/L ALP 104 40-129 U/L GGT 22 8-61 U/L Albumin 3.4 3.4-4.8 g/dL Total Protein 6.7 6.0-8.0 g/dL LIPASE Result Value Ref Range Lipase 47 13-60 U/L LACTIC ACID, WHOLE BLOOD ([facility]) Result Value Ref Range Lactic Acid, Whole Blood 3.2 (H) 0.5-2.0 mEq/L CREATINE KINASE Result Value Ref Range Creatine Kinase 866 (H) 39-308 U/L URINALYSIS WITH REFLEX CULTURE Result Value Ref Range Color, Urine Martha (A) Straw, Pale Yellow, Yellow, Clear, None Clarity, Urine Cloudy (A) Clear pH, Urine 5.0 <9.0 Spec [place], Urine 1.015 >1.000-<1.030 Glucose, Urine Negative Negative Blood, Urine 3+ (A) Negative Ketones, Urine Negative Negative Protein, Urine 1+ (A) Negative Urobilinogen, Urine Normal Normal Bilirubin, Urine Negative Negative Leukocyte Esterase, Urine Trace (A) Negative Nitrite, Urine Negative Negative MICROSCOPIC URINALYSIS Result Value Ref Range White Blood Cells, Urine 9 (H) 0-5 /HPF Red Blood Cells, Urine >180 (H) 0-2 /HPF Bacteria, Urine Moderate (A) /HPF Squamous Epithelial Cells, Urine 10 <=10 /LPF Mucous-Urine Rare None, Rare Amorphous Sediment-Urine Few (A) None, Rare VENOUS BLOOD GAS ([facility]) Result Value Ref Range pH, Venous 7.34 7.33-7.43 pCO2, Venous 49 37-50 torr pO2, Venous 36 (L) 37-47 torr Base Excess, Venous 1 -2-2 mEq/L Bicarbonate, Venous 26 22-26 mEq/L Total CO2, Venous 28 24-32 mEq/L Temperature, Venous 37.0 Degrees C BASIC METABOLIC PANEL W/ CALCIUM (CHEM 8) Result Value Ref Range Sodium 139 135-145 mEq/L Chloride 100 95-107 mEq/L CO2 25 22-29 mEq/L Anion Gap 14 8-18 mEq/L BUN 91 (H) 10-20 mg/dL Creatinine 3.4 (H) 0.6-1.2 mg/dL Glucose 192 (H) 65-99 mg/dL Calcium 8.7 8.5-10.5 mg/dL Potassium Hemolyzed (A) mEq/L Calculated GFR 18 (L) >60 mL/min/1.73 m2 NT-PROBNP Result Value Ref Range NT-ProBNP 1043 (H) 0-229 pg/mL BASIC METABOLIC PANEL W/ CALCIUM (CHEM 8) Result Value Ref Range Sodium 140 135-145 mEq/L Potassium 5.2 (H) 3.5-5.0 mEq/L Chloride 102 95-107 mEq/L CO2 23 22-29 mEq/L Anion Gap 15 8-18 mEq/L BUN 90 (H) 10-20 mg/dL Creatinine 3.4 (H) 0.6-1.2 mg/dL Glucose 129 (H) 65-99 mg/dL Calcium 8.5 8.5-10.5 mg/dL Calculated GFR 18 (L) >60 mL/min/1.73 m2 MAGNESIUM Result Value Ref Range Magnesium 2.5 1.5-2.9 mg/dL PHOSPHORUS Result Value Ref Range Phosphorus 4.5 2.5-4.5 mg/dL POTASSIUM ([facility]) Result Value Ref Range Potassium, Whole Blood 5.5 (H) 3.5-5.0 mEq/L BLOOD GLUCOSE, BEDSIDE Result Value Ref Range Glucose, Accu-Chek 183 (H) 65-99 mg/dL BASIC METABOLIC PANEL W/ CALCIUM (CHEM 8) Result Value Ref Range Sodium 139 135-145 mEq/L Potassium 5.5 (H) 3.5-5.0 mEq/L Chloride 101 95-107 mEq/L CO2 22 22-29 mEq/L Anion Gap 16 8-18 mEq/L BUN 89 (H) 10-20 mg/dL Creatinine 3.4 (H) 0.6-1.2 mg/dL Glucose 248 (H) 65-99 mg/dL Calcium 8.6 8.5-10.5 mg/dL Calculated GFR 18 (L) >60 mL/min/1.73 m2 SODIUM-URINE,RANDOM Result Value Ref Range Sodium, Urine, Random 54 mEq/L CREATININE-URINE, RANDOM Result Value Ref Range Creatinine, Urine, Random 53.3 mg/dL OSMOLALITY-URINE Result Value Ref Range Osmolality-Urine 332 319-9544 mOsm/k LACTIC ACID, WHOLE BLOOD ([facility]) Result Value Ref Range Lactic Acid, Whole Blood 2.3 (H) 0.5-2.0 mEq/L VENOUS OXYGEN SATURATION ([facility]) Result Value Ref Range Venous O2 Saturation 41.7 % Venous Oxyhemoglobin 40.8 % ARTERIAL BLOOD GAS ([facility]) Result Value Ref Range pH, Arterial 7.36 7.35-7.45 pCO2, Arterial 40 35-45 torr pO2, Arterial 86 80-90 torr Base Excess, Arterial -3 (L) -2-2 mEq/L Bicarbonate, Arterial 23 22-26 mEq/L Total CO2, Arterial 24 24-32 mEq/L Temperature, Arterial 37.0 Degrees C LACTIC ACID, WHOLE BLOOD ([facility]) Result Value Ref Range Lactic Acid, Whole Blood 1.3 0.5-2.0 mEq/L HEMOGLOBIN & CALCULATED HEMATOCRIT - ([facility]) Result Value Ref Range Hemoglobin - CCL 12.4 (L) 13.2-17.7 g/dL Hematocrit (Calc) - CCL 38 (L) 40-52 % LACTIC ACID, WHOLE BLOOD ([facility]) Result Value Ref Range Lactic Acid, Whole Blood 1.9 0.5-2.0 mEq/L BLOOD GLUCOSE, BEDSIDE Result Value Ref Range Glucose, Accu-Chek 131 (H) 65-99 mg/dL PROTEIN-URINE,RANDOM Result Value Ref Range Total Protein, Urine, Random 23 mg/dL CREATINE KINASE Result Value Ref Range Creatine Kinase 658 (H) 39-308 U/L PARATHYROID HORMONE Result Value Ref Range PTH 214.8 (H) 10.0-65.0 pg/mL VITAMIN D, 25-HYDROXY Result Value Ref Range Vitamin D, 25-OH 8 (L) 20-80 ng/mL LACTIC ACID, WHOLE BLOOD ([facility]) Result Value Ref Range Lactic Acid, Whole Blood 1.5 0.5-2.0 mEq/L HEMOGLOBIN & CALCULATED HEMATOCRIT - ([facility]) Result Value Ref Range Hemoglobin - CCL 12.3 (L) 13.2-17.7 g/dL Hematocrit (Calc) - CCL 38 (L) 40-52 % BASIC METABOLIC PANEL W/ CALCIUM (CHEM 8) Result Value Ref Range Sodium 136 135-145 mEq/L Potassium 4.6 3.5-5.0 mEq/L Chloride 98 95-107 mEq/L CO2 25 22-29 mEq/L Anion Gap 13 8-18 mEq/L BUN 67 (H) 10-20 mg/dL Creatinine 2.7 (H) 0.6-1.2 mg/dL Glucose 157 (H) 65-99 mg/dL Calcium 8.2 (L) 8.5-10.5 mg/dL Calculated GFR 24 (L) >60 mL/min/1.73 m2 UREA NITROGEN-URINE,RANDOM Result Value Ref Range Urea Nitrogen, Urine, Random 566 mg/dL VITAMIN D, 25-HYDROXY Result Value Ref Range Vitamin D, 25-OH 9 (L) 20-80 ng/mL BLOOD GLUCOSE, BEDSIDE Result Value Ref Range Glucose, Accu-Chek 139 (H) 65-99 mg/dL HEMOGLOBIN & CALCULATED HEMATOCRIT - ([facility]) Result Value Ref Range Hemoglobin - CCL 12.0 (L) 13.2-17.7 g/dL Hematocrit (Calc) - CCL 37 (L) 40-52 % MAGNESIUM Result Value Ref Range Magnesium 1.8 1.5-2.9 mg/dL PHOSPHORUS Result Value Ref Range Phosphorus 3.0 2.5-4.5 mg/dL BASIC METABOLIC PANEL W/ CALCIUM (CHEM 8) Result Value Ref Range Sodium 137 135-145 mEq/L Potassium 4.4 3.5-5.0 mEq/L Chloride 100 95-107 mEq/L CO2 22 22-29 mEq/L Anion Gap 15 8-18 mEq/L BUN 59 (H) 10-20 mg/dL Creatinine 2.4 (H) 0.6-1.2 mg/dL Glucose 156 (H) 65-99 mg/dL Calcium 7.9 (L) 8.5-10.5 mg/dL Calculated GFR 27 (L) >60 mL/min/1.73 m2 BLOOD CELL MORPHOLOGY Result Value Ref Range Toxic Granulation Present Dohle Bodies Present Vacuolated Neutrophils Present BLOOD GLUCOSE, BEDSIDE Result Value Ref Range Glucose, Accu-Chek 172 (H) 65-99 mg/dL LACTIC ACID, WHOLE BLOOD ([facility]) Result Value Ref Range Lactic Acid, Whole Blood 1.1 0.5-2.0 mEq/L BASIC METABOLIC PANEL W/ CALCIUM (CHEM 8) Result Value Ref Range Sodium 140 135-145 mEq/L Chloride 103 95-107 mEq/L CO2 25 22-29 mEq/L Anion Gap 12 8-18 mEq/L BUN 48 (H) 10-20 mg/dL Creatinine 1.9 (H) 0.6-1.2 mg/dL Glucose 129 (H) 65-99 mg/dL Calcium 8.3 (L) 8.5-10.5 mg/dL Potassium Hemolyzed (A) mEq/L Calculated GFR 36 (L) >60 mL/min/1.73 m2 MAGNESIUM Result Value Ref Range Magnesium 2.1 1.5-2.9 mg/dL PHOSPHORUS Result Value Ref Range Phosphorus 2.4 (L) 2.5-4.5 mg/dL BASIC METABOLIC PANEL W/ CALCIUM (CHEM 8) Result Value Ref Range Sodium 142 135-145 mEq/L Potassium 4.4 3.5-5.0 mEq/L Chloride 104 95-107 mEq/L CO2 25 22-29 mEq/L Anion Gap 13 8-18 mEq/L BUN 39 (H) 10-20 mg/dL Creatinine 1.8 (H) 0.6-1.2 mg/dL Glucose 129 (H) 65-99 mg/dL Calcium 8.3 (L) 8.5-10.5 mg/dL Calculated GFR 38 (L) >60 mL/min/1.73 m2 BLOOD CELL MORPHOLOGY Result Value Ref Range Dohle Bodies Present Vacuolated Neutrophils Present Large Platelet Present PT/INR (PROTHROMBIN TIME/INR) VENOUS Result Value Ref Range PT (Prothrombin Time) 32 (H) 9-12 secs INR 3.2 <4.0 MAGNESIUM Result Value Ref Range Magnesium 1.8 1.5-2.9 mg/dL PHOSPHORUS Result Value Ref Range Phosphorus 2.9 2.5-4.5 mg/dL BASIC METABOLIC PANEL W/ CALCIUM (CHEM 8) Result Value Ref Range Sodium 138 135-145 mEq/L Potassium 4.4 3.5-5.0 mEq/L Chloride 100 95-107 mEq/L CO2 25 22-29 mEq/L Anion Gap 13 8-18 mEq/L BUN 33 (H) 10-20 mg/dL Creatinine 1.7 (H) 0.6-1.2 mg/dL Glucose 118 (H) 65-99 mg/dL Calcium 8.4 (L) 8.5-10.5 mg/dL Calculated GFR 41 (L) >60 mL/min/1.73 m2 BLOOD GLUCOSE, BEDSIDE Result Value Ref Range Glucose, Accu-Chek 99 65-99 mg/dL CHEM 7 PANEL Result Value Ref Range Sodium 136 135-145 mEq/L Chloride 96 95-107 mEq/L Potassium 4.7 3.5-5.0 mEq/L CO2 23 22-29 mEq/L BUN 25 (H) 10-20 mg/dL Creatinine 1.4 (H) 0.6-1.2 mg/dL Glucose 164 (H) 65-99 mg/dL Anion Gap 17 8-18 mEq/L Calculated GFR 51 (L) >60 mL/min/1.73 m2 CBC (COMPLETE BLOOD COUNT) Result Value Ref Range WBC Count 9.3 3.7-10.5 K/MM3 RBC Count 4.02 (L) 4.50-6.20 M/MM3 Hemoglobin 11.9 (L) 13.2-17.7 g/dL Hematocrit 36 (L) 40-52 % MCV (Mean Corpuscular Volume) 90 82-99 FL MCH (Mean Corpuscular Hemoglobin) 30 25-35 PG MCHC (Mean Corpuscular Hemoglobin Concentration) 33 32-36 % Platelet Count 188 150-400 K/MM3 MPV (Mean Platelet Volume) 10.6 9.4-12.3 FL RBC Dist Width-STD 47.0 (H) 35.1-43.9 FL RBC Distrib Width 14.4 9.0-14.5 % Nucleated RBC 0 /100 WBC PT/INR (PROTHROMBIN TIME/INR) VENOUS Result Value Ref Range PT (Prothrombin Time) 23 (H) 9-12 secs INR 2.3 <4.0 ECG - EKG 12 LEAD Result Value Ref Range ECG SEVERITY - ABNORMAL ECG - VENT. RATE 60 bpm RR 1000 ms P-R INTERVAL 184 ms QRSD INTERVAL 128 ms QT INTERVAL 428 ms QTC INTERVAL 428 ms P AXIS 0 degrees QRS AXIS -167 degrees T WAVE AXIS 34 degrees REPORT BIVENTRICULAR PACED RHYTHM No prior tracing available for comparison Interpreting Physician: LALO DE LA ROSA MD ECG - EKG 12 LEAD Result Value Ref Range ECG SEVERITY - ABNORMAL ECG - VENT. RATE 64 bpm RR 938 ms P-R INTERVALms QRSD INTERVAL 142 ms QT INTERVAL 448 ms QTC INTERVAL 463 ms P AXISdegrees QRS AXIS 113 degrees T WAVE AXIS 26 degrees REPORT BIVENTRICULAR PACED RHYTHM No significant change Interpreting Physician: LALO DE LA ROSA MD ECHO ADULT - ECHOCARDIOGRAM, TRANSTHORACIC Result Value Ref Range Interpretation Summary TRANSTHORACIC ECHOCARDIOGRAM Mild to moderately decreased LV systolic function. LV Ejection Fraction= 40-50% Apical segments with akinesis to dyskinesis and no obvious thrombus. The aortic Sinus(es) of Valsalva are moderately dilated. Patient Height (cm) 182.9 cm Patient Weight (kg) 146.1 kg Systolic Pressure (mmHg) 135 mmHg Diastolic Pressure (mmHg) 65 mmHg BSA (meters^2) 2.6 m^2 Left Ventricle (LV) Moderately enlarged left ventricle. No obvious LV thrombus noted. Mild left ventricular hypertrophy. LV endocardial borders are poorly seen. Ultrasound contrast agent required for visualization. Mild to moderately decreased LV systolic function. LV Ejection Fraction=40-50% (based on visual estimate). Inconclusive LV diastolic parameters. Regional wall motion abnormality noted which is consistent with Left Anterior Descending (LAD) disease Apical segments with akinesis to dyskinesis and no obvious thrombus. Right Ventricle (RV) Probably normal right ventricular size Probably normal right ventricular systolic function. Left and Right Atria (LA, RA) Enlarged LA size based on 2D linear dimensions. Enlarged LA size based on volume measurements. LA ESV index=35 ml/m2. Probably enlarged right atrial chamber size. Mitral Valve (MV) Normal mitral valve morphology and leaflet mobility Trace mitral regurgitation by color Doppler. Tricuspid Valve (TV) Trace to mild tricuspic regurgitation based on 'color and spectral Doppler'. RV/RA peak instantaneous systolic gradient=18mmHg. Aortic Valve (AoV) Trileaflet AoV without calcification or restricted leaflet mobility Thickened aortic valve leaflets Mild aortic insufficiency by color Doppler. No hemodynamically significant valvular aortic stenosis by doppler Pulmonic Valve (PV) Pulmonic valve insufficiency by doppler Aorta and Pulmonary Artery (Ao, PA) The Sinus of Valsalva measures 4.5cm The aortic Sinus(es) of Valsalva are moderately dilated. Pericardium/Pleura There is no pericardial effusion. Procedures Complete 2D with Doppler, Color Flow and image documentation ([id number]) Ultrasound contrast - Definity([id number]) Inf. Vena Cava (IVC) / Pulm. Veins A normal IVC diameter which collapses greater than 50% would support an normal RA pressure of 3 mmHg (range 0-5mmHg). IVSd 1.2 cm LVIDd 6.8 cm LVIDs 4.3 cm LVPWd 1.0 cm IVS/LVPW 1.2 Ao root diam 3.9 cm Ao root area 12.0 cm^2 LA dimension 4.6 cm LA/Ao 1.2 LVOT diam 1.7 cm LVOT area 2.2 cm^2 LVAd ap4 48.6 cm^2 EF(MOD-sp4) 58.1 % MV E max susan 101.4 cm/sec MV dec time 0.31 sec TR Max susan 210.4 cm/sec Low Range of LVEF 40 High Range of LVEF 50 Reason For Study Hypotension [employer] Secretary Grecia Buitrago Interpreting Physician Bruno Choe MD electronically signed on 2016-12-28 13:51:19.06 SURGICAL PATHOLOGY EXAM Result Value Ref Range Case Report Surgical PathologyCase: [id number] Authorizing Provider:Regina Sapp MD Collected: 12/29/2016 03:42 PM Ordering Location: [id number]: 12/29/2016 04:34 PM Pathologist: Daniel Dubois MD Specimens: A) - Colon, specify, SEVERE COLITIS/? ISCHEMIA B) - Rectum, RECTAL POLYP Diagnosis A. Colon, sigmoid, biopsy: Severe ischemic colitis with abundant fibrinopurulent debris consistent with ulcer. B. Rectum, polyp, biopsy: Hyperplastic polyp. I have personally reviewed this case and edited the report as necessary. Clinical Information Sigmoidoscopy: 1. Severe colitis ?ischemia; 2. Distal rectal polyp Gross Description A.Received in formalin, in a container labeled Doyle Lind, hospital number, and "SEVERE COLITIS/? ISCHEMIA", are ten holly-light brown soft tissue fragments, 0.2 to 0.4 cm in greatest dimension. Submitted in toto in A1. AJF/rls B.Received in formalin, in a container labeled Doyle Lind , hospital number, and "RECTAL POLYP", are two holly soft tissue fragments, 0.2 and 0.2 cm in greatest dimension. Submitted in toto in B1. AJF/rls Microscopic Description A,B. Microscopic examination performed and supports diagnosis. DvdH/ANS CBC (COMPLETE BLOOD COUNT) Result Value Ref Range WBC Count 19.3 (H) 3.7-10.5 K/MM3 RBC Count 4.55 4.50-6.20 M/MM3 Hemoglobin 13.4 13.2-17.7 g/dL Hematocrit 41 40-52 % MCV (Mean Corpuscular Volume) 90 82-99 FL MCH (Mean Corpuscular Hemoglobin) 30 25-35 PG MCHC (Mean Corpuscular Hemoglobin Concentration) 33 32-36 % Platelet Count 195 150-400 K/MM3 MPV (Mean Platelet Volume) 10.6 9.4-12.3 FL RBC Dist Width-STD 48.4 (H) 35.1-43.9 FL RBC Distrib Width 14.6 (H) 9.0-14.5 % Nucleated RBC 0 /100 WBC DIFFERENTIAL Result Value Ref Range % Neutrophils-Auto Diff 88.9 % [place] 212[address] (H) 0872-4928 /MM3 % Lymphocytes-Auto Diff 4.9 % Lymphocytes-Auto Diff 369 024-5275 /MM3 % Monocytes-Auto Diff 5.3 % Monocytes-Auto Diff 1030 (H) 130-860 /MM3 % Eosinophils-Auto Diff 0.0 % Eosinophils-Auto Diff 0 (L) 40-390 /MM3 % Basophils 0.2 % Basophils-Auto Diff 30 10-136 /MM3 % Immature Granulocytes-Auto Diff 0.7 % Immature Granulocytes-Auto Diff 140 /MM3 CBC (COMPLETE BLOOD COUNT) Result Value Ref Range WBC Count 13.7 (H) 3.7-10.5 K/MM3 RBC Count 3.91 (L) 4.50-6.20 M/MM3 Hemoglobin 11.3 (L) 13.2-17.7 g/dL Hematocrit 36 (L) 40-52 % MCV (Mean Corpuscular Volume) 91 82-99 FL MCH (Mean Corpuscular Hemoglobin) 29 25-35 PG MCHC (Mean Corpuscular Hemoglobin Concentration) 32 32-36 % Platelet Count 183 150-400 K/MM3 MPV (Mean Platelet Volume) 10.4 9.4-12.3 FL RBC Dist Width-STD 48.4 (H) 35.1-43.9 FL RBC Distrib Width 14.6 (H) 9.0-14.5 % Nucleated RBC 0 /100 WBC DIFFERENTIAL Result Value Ref Range % Neutrophils-Auto Diff 84.6 % Neutrophils-Auto Diff 99318 (H) 3516-0648 /MM3 % Lymphocytes-Auto Diff 7.3 % Lymphocytes-Auto Diff 0692 383-9675 /MM3 % Monocytes-Auto Diff 7.4 % Monocytes-Auto Diff 1020 (H) 130-860 /MM3 % Eosinophils-Auto Diff 0.1 % Eosinophils-Auto Diff 10 (L) 40-390 /MM3 % Basophils 0.1 % Basophils-Auto Diff 10 10-136 /MM3 % Immature Granulocytes-Auto Diff 0.5 % Immature Granulocytes-Auto Diff 70 /MM3 CBC (COMPLETE BLOOD COUNT) Result Value Ref Range WBC Count 16.2 (H) 3.7-10.5 K/MM3 RBC Count 3.88 (L) 4.50-6.20 M/MM3 Hemoglobin 11.3 (L) 13.2-17.7 g/dL Hematocrit 35 (L) 40-52 % MCV (Mean Corpuscular Volume) 91 82-99 FL MCH (Mean Corpuscular Hemoglobin) 29 25-35 PG MCHC (Mean Corpuscular Hemoglobin Concentration) 32 32-36 % Platelet Count 171 150-400 K/MM3 MPV (Mean Platelet Volume) 10.0 9.4-12.3 FL RBC Dist Width-STD 49.2 (H) 35.1-43.9 FL RBC Distrib Width 14.7 (H) 9.0-14.5 % Nucleated RBC 0 /100 WBC DIFFERENTIAL Result Value Ref Range % Manual Neutrophils 73.9 % Neutrophils-Manual 20703 (H) 1313-0286 /MM3 % Manual Lymphocytes 12.2 % Lymphocytes-Manual 9700 580-7041 /MM3 % Manual Monocytes 5.2 % Monocytes-Manual 847 130-860 /MM3 % Manual Bands 8.7 % Bands-Man Diff 1411 (H) 0-406 /MM3 ANC (Absolute Neutrophil Count) 11966 /MM3 CBC (COMPLETE BLOOD COUNT) Result Value Ref Range WBC Count 8.6 3.7-10.5 K/MM3 RBC Count 3.71 (L) 4.50-6.20 M/MM3 Hemoglobin 11.0 (L) 13.2-17.7 g/dL Hematocrit 34 (L) 40-52 % MCV (Mean Corpuscular Volume) 92 82-99 FL MCH (Mean Corpuscular Hemoglobin) 30 25-35 PG MCHC (Mean Corpuscular Hemoglobin Concentration) 32 32-36 % Platelet Count 145 (L) 150-400 K/MM3 MPV (Mean Platelet Volume) 10.4 9.4-12.3 FL RBC Dist Width-STD 50.0 (H) 35.1-43.9 FL RBC Distrib Width 14.8 (H) 9.0-14.5 % Nucleated RBC 0 /100 WBC DIFFERENTIAL Result Value Ref Range % Manual Neutrophils 75.0 % Neutrophils-Manual 6443 1373-2605 /MM3 % Manual Lymphocytes 11.2 % Lymphocytes-Manual 998 379-0092 /MM3 % Manual Monocytes 6.0 % Monocytes-Manual 518 130-860 /MM3 % Manual Eosinophils 1.7 % Eosinophils-Manual 148 40-390 /MM3 % Manual Bands 6.0 % Bands-Man Diff 518 (H) 0-406 /MM3 ANC (Absolute Neutrophil Count) 6961 /MM3 CBC (COMPLETE BLOOD COUNT) Result Value Ref Range WBC Count 8.7 3.7-10.5 K/MM3 RBC Count 3.58 (L) 4.50-6.20 M/MM3 Hemoglobin 10.7 (L) 13.2-17.7 g/dL Hematocrit 34 (L) 40-52 % MCV (Mean Corpuscular Volume) 94 82-99 FL MCH (Mean Corpuscular Hemoglobin) 30 25-35 PG MCHC (Mean Corpuscular Hemoglobin Concentration) 32 32-36 % Platelet Count 162 150-400 K/MM3 MPV (Mean Platelet Volume) 10.6 9.4-12.3 FL RBC Dist Width-STD 50.4 (H) 35.1-43.9 FL RBC Distrib Width 14.6 (H) 9.0-14.5 % Nucleated RBC 0 /100 WBC DIFFERENTIAL Result Value Ref Range % Neutrophils-Auto Diff 69.9 % Neutrophils-Auto Diff 6100 5845-7757 /MM3 % Lymphocytes-Auto Diff 15.8 % Lymphocytes-Auto Diff 6458 243-6846 /MM3 % Monocytes-Auto Diff 10.4 % Monocytes-Auto Diff 910 (H) 130-860 /MM3 % Eosinophils-Auto Diff 2.5 % Eosinophils-Auto Diff 220 40-390 /MM3 % Basophils 0.5 % Basophils-Auto Diff 40 10-136 /MM3 % Immature Granulocytes-Auto Diff 0.9 % Immature Granulocytes-Auto Diff 80 /MM3 BLOOD GLUCOSE, BEDSIDE (12/31/2016 5:42 PM)Only the most recent of5 resultswithin the time period is included. Component Value Range Glucose, Accu-Chek 99 65-99 mg/dL Specimen Blood, capillary DIFFERENTIAL (12/31/2016 3:03 AM)Only the most recent of5 resultswithin the time period is included. Component Value Range % Neutrophils-Auto Diff 69.9 % Neutrophils-Auto Diff 6100 1336-7087 /MM3 % Lymphocytes-Auto Diff 15.8 % Lymphocytes-Auto Diff 6621 892-4974 /MM3 % Monocytes-Auto Diff 10.4 % Monocytes-Auto Diff 910(H) 130-860 /MM3 % Eosinophils-Auto Diff 2.5 % Eosinophils-Auto Diff 220 40-390 /MM3 % Basophils 0.5 % Basophils-Auto Diff 40 10-136 /MM3 % Immature Granulocytes-Auto Diff 0.9 % Immature Granulocytes-Auto Diff 80 /MM3 Specimen Whole Blood CBC (COMPLETE BLOOD COUNT) (12/31/2016 3:03 AM)Only the most recent of5 resultswithin the time period is included. Component Value Range WBC Count 8.7 3.7-10.5 K/MM3 RBC Count 3.58(L) 4.50-6.20 M/MM3 Hemoglobin 10.7(L) 13.2-17.7 g/dL Hematocrit 34(L) 40-52 % MCV (Mean Corpuscular Volume) 94 82-99 FL MCH (Mean Corpuscular Hemoglobin) 30 25-35 PG MCHC (Mean Corpuscular Hemoglobin Concentration) 32 32-36 % Platelet Count 162 150-400 K/MM3 MPV (Mean Platelet Volume) 10.6 9.4-12.3 FL RBC Dist Width-STD 50.4(H) 35.1-43.9 FL RBC Distrib Width 14.6(H) 9.0-14.5 % Nucleated RBC 0 /100 WBC Specimen Whole Blood BASIC METABOLIC PANEL W/ CALCIUM (CHEM 8) (12/31/2016 3:03 AM)Only the most recent of9 resultswithin the time period is included. Component Value Range Sodium 138 135-145 mEq/L Potassium 4.4 3.5-5.0 mEq/L Chloride 100 95-107 mEq/L CO2 25 22-29 mEq/L Anion Gap 13 8-18 mEq/L BUN 33(H) 10-20 mg/dL Creatinine 1.7(H)Comment: 0.6-1.2 mg/dL Creatinine switched to enzymatic method on 03/09/2011.GFR equation switched to IDMS-traceable MDRD equation on 03/09/2011. Calculated GFR values are not valid in clinical settings where serum creatinine is changing. Glucose 118(H)Comment: 65-99 mg/dL The Expert Committee on the Diagnosis and Classification of Diabetes has defined impaired fasting glucose as greater than or equal to 100 mg/dL but less than 126 mg/dL.(Diabetes Care 28 (Suppl 1)S41,2005) Calcium 8.4(L) 8.5-10.5 mg/dL Calculated GFR 41(L) >60 mL/min/1.73 m2 Specimen Blood PHOSPHORUS (12/31/2016 3:03 AM)Only the most recent of4 resultswithin the time period is included. Component Value Range Phosphorus 2.9Comment:New reference range installed 08/12/15. 2.5-4.5 mg/dL Specimen Blood MAGNESIUM (12/31/2016 3:03 AM)Only the most recent of4 resultswithin the time period is included. Component Value Range Magnesium 1.8 1.5-2.9 mg/dL Specimen Blood CBC WITH DIFFERENTIAL (12/31/2016 3:03 AM)Only the most recent of5 resultswithin the time period is included. Specimen Whole Blood Narrative The following orders were created for panel order CBC WITH DIFFERENTIAL. Procedure Abnormality Status --------- ------ CBC (COMPLETE BLOOD COUNT)[[id number]] AbnormalFinal result DIFFERENTIAL[[id number]] AbnormalFinal result Please view results for these tests on the individual orders. CHEST - AP/PA (12/30/2016 4:41 AM)Only the most recent of4 resultswithin the time period is included. Impressions Findings/Impression: Since yesterday, moderate cardiomegaly with normal pulmonary vasculature is stable. The lungs are clear other than mild paramedian bibasilar atelectasis. The cardiac pacing leads are in stable and appropriate positions. The right internal jugular line has been withdrawn. Narrative Procedure: CHEST - AP/PA Technique: Portable AP chest radiograph Comparison: Chest radiograph(s) dated: 12/27/2016 to 12/29/2016. Clinical Indication: Lung assessment Procedure Note Jayme, Incoming Imaging Results - Jenna Dec 30, 2016 7:57 AM CANNONEER Procedure: CHEST - AP/PA Technique: Portable AP chest radiograph Comparison: Chest radiograph(s) dated: 12/27/2016 to 12/29/2016. Clinical Indication: Lung assessment IMPRESSION Findings/Impression: Since yesterday, moderate cardiomegaly with normal pulmonary vasculature is stable. The lungs are clear other than mild paramedian bibasilar atelectasis. The cardiac pacing leads are in stable and appropriate positions. The right internal jugular line has been withdrawn. BLOOD CELL MORPHOLOGY (12/30/2016 3:47 AM)Only the most recent of2 resultswithin the time period is included. Component Value Range Dohle Bodies Present Vacuolated Neutrophils Present Large Platelet Present Specimen Whole Blood SURGICAL PATHOLOGY EXAM (12/29/2016 3:42 PM) Component Value Range Case Report Surgical Pathology Case: [id number] Authorizing Provider:Regina Sapp MD Collected: 12/29/2016 03:42 PM Ordering Location: [facility] Received:12/29/2016 04:34 PM Pathologist: Daniel Dubois MD Specimens: A) - Colon, specify, SEVERE COLITIS/? ISCHEMIA B) - Rectum, RECTAL POLYP Diagnosis A. Colon, sigmoid, biopsy: Severe ischemic colitis with abundant fibrinopurulent debris consistent with ulcer. B. Rectum, polyp, biopsy: Hyperplastic polyp. I have personally reviewed this case and edited the report as necessary. Clinical Information Sigmoidoscopy: 1. Severe colitis ?ischemia; 2. Distal rectal polyp Gross Description A.Received in formalin, in a container labeled Doyle Lind, hospital number, and "SEVERE COLITIS/? ISCHEMIA", are ten holly-light brown soft tissue fragments, 0.2 to 0.4 cm in greatest dimension. Submitted in toto in A1. AJF/rls B.Received in formalin, in a container labeled Doyle Lind, hospital number, and "RECTAL POLYP", are two holly soft tissue fragments, 0.2 and 0.2 cm in greatest dimension. Submitted in toto in B1. AJF/rls Microscopic Description A,B. Microscopic examination performed and supports diagnosis. DvdH/ANS Specimen Tissue - Rectum ECG - EKG 12 LEAD (12/29/2016 10:51 AM)Only the most recent of2 resultswithin the time period is included. Component Value Range ECG SEVERITY - ABNORMAL ECG - VENT. RATE 64 bpm RR 938 ms QRSD INTERVAL 142 ms QT INTERVAL 448 ms QTC INTERVAL 463 ms QRS AXIS 113 degrees T WAVE AXIS 26 degrees REPORT BIVENTRICULAR PACED RHYTHM No significant change Interpreting Physician: LALO DE LA ROSA MD LACTIC ACID, WHOLE BLOOD ([facility]) (12/29/2016 7:15 AM)Only the most recent of6 resultswithin the time period is included. Component Value Range Lactic Acid, Whole Blood 1.1Comment: 0.5-2.0 mEq/L Glycolate, the principle toxic metabolite of ethylene glycol, can cause artifactual elevation of measured lactate. Specimen Whole Blood HEMOGLOBIN& CALCULATED HEMATOCRIT - ([facility]) (12/29/2016 12: 13 AM)Only the most recent of3 resultswithin the time period is included. Component Value Range Hemoglobin - CCL 12.0(L) 13.2-17.7 g/dL Hematocrit (Calc) - CCL 37(L) 40-52 % Specimen Whole Blood ENTERIC PANEL (12/28/2016 6:41 PM) Component Value Range Campylobacter spp. Not Detected Not Detected Plesiomonas shigelloides Not Detected Not Detected Salmonella spp. Not Detected Not Detected Vibrio (parahaemolyticus, vulnificus and Not Detected Not Detected cholerae) Vibrio cholerae Not Detected Not Detected Yersinia enterocolitica Not Detected Not Detected Enteroaggregative E. coli (EAEC) Not Detected Not Detected Enteropathogenic E. coli (EPEC) Not Detected Not Detected Enterotoxigenic E. coli (ETEC) Not Detected Not Detected Shiga-like toxin-producing E. coli (STEC) Not Detected Not Detected E. coli O157 Not Detected Not Detected, Indeterminate Shigella/Enteroinvasive E. coli (EIEC) Not Detected Not Detected Cryptosporidium Not Detected Not Detected Cyclospora cayetanensis Not Detected Not Detected Entamoeba histolytica Not Detected Not Detected Giardia lamblia Not Detected Not Detected Adenovirus F 40/41 Not Detected Not Detected Astrovirus Not Detected Not Detected Norovirus Not Detected Not Detected Rotavirus Not Detected Not Detected Sapovirus Not Detected Not Detected Specimen Culture - Stool Narrative Non-STEC E. coli such as enterotoxigenic E. coli (ETEC), enteroaggregative E. coli (EAEC) and enteropathogenic E. coli (EPEC) are common causes of travelers' diarrhea but may also be normal rubio. Most Shigella do not produce Shiga toxins, while some E. coli (STEC) do. STEC , enteroinvasive E. coli (EIEC) and Shigella all produce similar clinical syndromes. Treatment of tspfm-dpdnd-[id number] with antibiotics or antimotility agents may increase the risk of complications, including hemolytic uremic syndrome, neurologic complications, and toxic megacolon. Aeromonas testing is not routinely performed. Test method: PCR amplification; [employer] GI Panel ([employer], [employer] C. DIFFICILE TOXIN SCREEN (12/28/2016 6:41 PM) Component Value Range C. Difficle GDH Negative Negative C. Difficile Toxin NegativeComment: Negative Negative for the presence of C. difficile and C. difficile toxin. Specimen Stool VITAMIN D, 25-HYDROXY (12/28/2016 11:48 AM)Only the most recent of2 resultswithin the time period is included. Component Value Range Vitamin D, 25-OH 9(L)Comment: 20-80 ng/mL This assay accurately quantifies the sum of 25-hydroxyvitamin D3 and 25- hydroxyvitamin D2. Endocrine Society, [place] of Medicine (IOM), and World Health Organization (WHO) guidelines designate 25-h ydroxyvitamin D plasma concentrations below 20 ng/mL as deficient, based on increased frequency of adverse outcomes (e.g., osteoporotic fractures). 25-Hydroxyvitamin D reference ranges are a controversial topic, with some authorities suggesting optimal concentrations should be 30 ng/mL or higher based on correlations of 25-hydroxyvitamin D plasma concentrations with physiological parameters such as parathyroid hormone or calcium concentrations. However, optimal 25-hydroxyvitamin D concentrations greater than 20 ng/mL may be considered for specific disease conditions. Vitamin D toxicity is uncommon but may be seen at 25-hydroxyvitamin D concentrations greater than 150 ng/mL. Specimen Blood PARATHYROID HORMONE (12/28/2016 11:48 AM) Component Value Range PTH 214.8(H) 10.0-65.0 pg/mL Specimen Blood CREATINE KINASE (12/28/2016 11:48 AM)Only the most recent of2 resultswithin the time period is included. Component Value Range Creatine Kinase 658(H) 39-308 U/L Specimen Blood ECHO ADULT - ECHOCARDIOGRAM, TRANSTHORACIC (12/28/2016 11:30 AM) Component Value Range Interpretation Summary TRANSTHORACIC ECHOCARDIOGRAM Mild to moderately decreased LV systolic function. LV Ejection Fraction= 40-50% Apical segments with akinesis to dyskinesis and no obvious thrombus. The aortic Sinus(es) of Valsalva are moderately dilated. Patient Height (cm) 182.9 cm Patient Weight (kg) 146.1 kg Systolic Pressure (mmHg) 135 mmHg Diastolic Pressure (mmHg) 65 mmHg BSA (meters^2) 2.6 m^2 Left Ventricle (LV) Moderately enlarged left ventricle. No obvious LV thrombus noted. Mild left ventricular hypertrophy. LV endocardial borders are poorly seen. Ultrasound contrast agent required for visualization. Mild to moderately decreased LV systolic function. LV Ejection Fraction=40-50% (based on visual estimate). Inconclusive LV diastolic parameters. Regional wall motion abnormality noted which is consistent with Left Anterior Descending (LAD) disease Apical segments with akinesis to dyskinesis and no obvious thrombus. Right Ventricle (RV) Probably normal right ventricular size Probably normal right ventricular systolic function. Left and Right Atria (LA, RA) Enlarged LA size based on 2D linear dimensions. Enlarged LA size based on volume measurements. LA ESV index=35 ml/m2. Probably enlarged right atrial chamber size. Mitral Valve (MV) Normal mitral valve morphology and leaflet mobility Trace mitral regurgitation by color Doppler. Tricuspid Valve (TV) Trace to mild tricuspic regurgitation based on 'color and spectral Doppler'. RV/RA peak instantaneous systolic gradient=18mmHg. Aortic Valve (AoV) Trileaflet AoV without calcification or restricted leaflet mobility Thickened aortic valve leaflets Mild aortic insufficiency by color Doppler. No hemodynamically significant valvular aortic stenosis by doppler Pulmonic Valve (PV) Pulmonic valve insufficiency by doppler Aorta and Pulmonary Artery (Ao, PA) The Sinus of Valsalva measures 4.5cm The aortic Sinus(es) of Valsalva are moderately dilated. Pericardium/Pleura There is no pericardial effusion. Procedures Complete 2D with Doppler, Color Flow and image documentation ( [id number]) Ultrasound contrast - Definity([id number]) Inf. Vena Cava (IVC) / Pulm. Veins A normal IVC diameter which collapses greater than 50% would support an normal RA pressure of 3 mmHg (range 0-5mmHg). IVSd 1.2 cm LVIDd 6.8 cm LVIDs 4.3 cm LVPWd 1.0 cm IVS/LVPW 1.2 Ao root diam 3.9 cm Ao root area 12.0 cm^2 LA dimension 4.6 cm LA/Ao 1.2 LVOT diam 1.7 cm LVOT area 2.2 cm^2 LVAd ap4 48.6 cm^2 EF(MOD-sp4) 58.1 % MV E max susan 101.4 cm/sec MV dec time 0.31 sec TR Max susan 210.4 cm/sec Low Range of LVEF 40 High Range of LVEF 50 Reason For Study Hypotension [employer] Secretary Grecia Buitrago Interpreting Physician Bruno Choe MD electronically signed on 2016-12-28 13:51:19.06 BLOOD CULTURE (12/28/2016 3:22 AM)Only the most recent of2 resultswithin the time period is included. Component Value Range Blood Culture No Growth Specimen Blood - Blood, Venipuncture UREA NITROGEN-URINE,RANDOM (12/28/2016 2:31 AM) Component Value Range Urea Nitrogen, Urine, Random 566 mg/dL Specimen Urine PROTEIN-URINE,RANDOM (12/28/2016 2:31 AM) Component Value Range Total Protein, Urine, Random 23 mg/dL Specimen Urine OSMOLALITY-URINE (12/28/2016 2:31 AM) Component Value Range Osmolality-Urine 538 759-8789 mOsm/k Specimen Urine CREATININE-URINE, RANDOM (12/28/2016 2:31 AM) Component Value Range Creatinine, Urine, Random 53.3 mg/dL Specimen Urine SODIUM-URINE,RANDOM (12/28/2016 2:31 AM) Component Value Range Sodium, Urine, Random 54 mEq/L Specimen Urine ARTERIAL BLOOD GAS ([facility]) (12/28/2016 2:21 AM) Component Value Range pH, Arterial 7.36 7.35-7.45 pCO2, Arterial 40 35-45 torr pO2, Arterial 86 80-90 torr Base Excess, Arterial -3(L) -2-2 mEq/L Bicarbonate, Arterial 23 22-26 mEq/L Total CO2, Arterial 24 24-32 mEq/L Temperature, Arterial 37.0 Degrees C Specimen Whole Blood VENOUS OXYGEN SATURATION ([facility]) (12/28/2016 2:21 AM) Component Value Range Venous O2 Saturation 41.7 % Venous Oxyhemoglobin 40.8 % Specimen Whole Blood POTASSIUM ([facility]) (12/28/2016 1:13 AM) Component Value Range Potassium, Whole Blood 5.5(H)Comment: 3.5-5.0 mEq/L Sample run on whole blood.Hemolysis is not measured. Specimen Whole Blood VENOUS BLOOD GAS ([facility]) (12/28/2016 1:13 AM) Component Value Range pH, Venous 7.34 7.33-7.43 pCO2, Venous 49 37-50 torr pO2, Venous 36(L) 37-47 torr Base Excess, Venous 1 -2-2 mEq/L Bicarbonate, Venous 26 22-26 mEq/L Total CO2, Venous 28 24-32 mEq/L Temperature, Venous 37.0 Degrees C Specimen Whole Blood NT-PROBNP (12/28/2016 12:39 AM) Component Value Range NT-ProBNP 1043(H)Comment: 0-229 pg/mL Reference ranges in adults reflect 95th percentiles for NT-pro-BNP levels in patients without congestive heart failure (CHF). Pediatric reference ranges for patients 18 years and younger are from Asif et al. Pediatr Cardiol 30:3-8, 2008. Age Reference Range (pg/mL) Pediatric (boys and girls): 0-30 days:263 - 6500 1 month-11 months: 37 - 1000 12 months-35 months: 39 -675 3 years to 6 years:23 -327 7 years to 14 years: 10 -242 15 years to 18 years: 6 -207 Adult Males: 19-44 years: 0 -93 45-54 years: 0 - 138 55-64 years: 0 - 177 65-74 years: 0 - 229 75 years or older: 0 - 852 Adult Females: 19-44 years: 0 - 178 45-54 years: 0 - 192 55-64 years: 0 - 226 65-74 years: 0 - 353 75 years or older: 0 - 624 For adult chronic CHF patients according to [place] [employer] (NYHA) Functional Class for NT-proBNP levels in pg/mL: [id number] Mean percentile percentile Class I: [id number] Class II:[id number] Class III: [id number] Class IV:[id number] Among patients with dyspnea, NT-proBNP is highly sensitive for the detection of acute CHF. In addition, a NT-proBNP < 300 pg/mL effectively rules out acute CHF, with 99% negative predictive value. Elevations in NT-proBNP levels may be observed in states other than left ventricular congestive failure including: acute coronary syndromes, right heart strain/failure (including pulmonary embolism an d cor pulmonale), critical illness, and renal failure. Falsely low NT-proBNP in CHF patients may be observed in increased body mass index. Specimen Blood MICROSCOPIC URINALYSIS (12/27/2016 10:45 PM) Component Value Range White Blood Cells, Urine 9(H) 0-5 /HPF Red Blood Cells, Urine >180(H) 0-2 /HPF Bacteria, Urine Moderate(A) /HPF Squamous Epithelial Cells, Urine 10 <=10 /LPF Mucous-Urine Rare None, Rare Amorphous Sediment-Urine Few(A) None, Rare Specimen Urine URINALYSIS WITH REFLEX CULTURE (12/27/2016 10:45 PM) Component Value Range Color, Urine Martha(A) Straw, Pale Yellow, Yellow, Clear, None Clarity, Urine Cloudy(A) Clear pH, Urine 5.0 <9.0 Spec [place], Urine 1.015 1.000-1.030 Glucose, Urine Negative Negative Blood, Urine 3+(A) Negative Ketones, Urine Negative Negative Protein, Urine 1+(A) Negative Urobilinogen, Urine Normal Normal Bilirubin, Urine Negative Negative Leukocyte Esterase, Urine Trace(A) Negative Nitrite, Urine Negative Negative Specimen Urine URINALYSIS WITH REFLEXED CULTURE AND MICROSCOPIC EXAM (12/27/2016 10:45 PM) Specimen Culture - Urine, Indwelling cath Narrative The following orders were created for panel order URINALYSIS WITH REFLEXED CULTURE AND MICROSCOPIC EXAM. Procedure Abnormality Status --------- ------ URINALYSIS WITH REFLEX C...[[id number]]AbnormalFinal result MICROSCOPIC URINALYSIS[[id number]] Abnormal Final result URINE CULTURE, REFLEXED[[id number]]Normal Final result Please view results for these tests on the individual orders. URINE CULTURE, REFLEXED (12/27/2016 10:45 PM) Component Value Range Quantitative Culture No growth at 10/999 dilution Specimen Culture - Urine, Indwelling cath CT ABDOMEN& PELVIS WO CONTRAST ([id number]) (12/27/2016 10:38 PM) Impressions Impression: 1. Colonic wall thickening involving the descending and sigmoid colon with adjacent mesenteric fat stranding consistent with colitis, etiology could be infectious, inflammatory, or ischemic. 2. Subcutaneous soft tissue stranding of the superficial right flank and gluteal tissues, likely related to contusion from recent fall. 3. Exophytic cystic lesion in the left kidney incompletely evaluated without IV contrast. 4. Cortical thickening of the visualized portions of the left femur, this can be seen with Paget's disease, however this is not well evaluated on this CT, consider plain films for further evaluation. This final report is in agreement with the critical and emergent preliminary findings reported by the business services vice president customer relationship specialist. Results of the procedure were given to: PERSON CONTACTED:Amadeo Kirk PA-C DATE: 12/27/2016 TIME CALLED:[phone] PHONE/PAGER:[phone] Narrative Procedure: CT ABDOMEN & PELVIS WO CONTRAST ([id number]) Clinical Indication: Abdominal pain and right flank bruising. Technique: CT exam of the abdomen and pelvis is performed without IV contrast. Comparison: None available. Findings: The absence of IV contrast limits assessment of the solid organs, bowel, and vascular structures. Lower chest: The visualized lung bases demonstrate some compressive airspace disease of the dependent left lower and middle lobes, likely atelectatic. Cardioverter-defibrillator leads. Right atrial enlargement. Liver: Normal. Bile ducts: Not dilated. Gallbladder: Normal. Pancreas: Normal Spleen: Normal. Adrenal glands: Normal Kidneys: 2.7 cm, exophytic lesion arising from the inferior pole of the left kidney demonstrating density consistent with a cyst. No hydronephrosis or nephrolithiasis. Ureters: Normal. Bladder: Decompressed with Zarate catheter in situ. Aorta: Mild atherosclerotic calcifications. Retroperitoneum: No lymphadenopathy. Peritoneum: No ascites or pneumoperitoneum. Mesentery: There is mesenteric fat stranding around the colon from the splenic flexure to the low sigmoid colon. Stomach: Not distended. Small bowel: Not distended. Colon: There is significant colonic wall thickening involving the descending and sigmoid colon; no colonic distention. Scattered colonic diverticula are noted. Appendix: Not identified with certainty. Extraperitoneal pelvis: No lymphadenopathy. Prostate: Enlarged at 5.8 cm in transverse dimension. Abdominal wall: Periumbilical hernia containing mesenteric fat. Fat stranding of the subcutaneous tissues of the right gluteal area and flank. Bones: No acute fracture or destructive bone lesion. There is cortical thickening of the visualized portions of the left femur. Procedure Note Jayme, Incoming Imaging Results - Tue Dec 28, 2016 1:41 PM CANNONEER Procedure: CT ABDOMEN & PELVIS WO CONTRAST ([id number]) Clinical Indication: Abdominal pain and right flank bruising. Technique: CT exam of the abdomen and pelvis is performed without IV contrast. Comparison: None available. Findings: The absence of IV contrast limits assessment of the solid organs, bowel, and vascular structures. Lower chest: The visualized lung bases demonstrate some compressive airspace disease of the dependent left lower and middle lobes, likely atelectatic. Cardioverter-defibrillator leads. Right atrial enlargement. Liver: Normal. Bile ducts: Not dilated. Gallbladder: Normal. Pancreas: Normal Spleen: Normal. Adrenal glands: Normal Kidneys: 2.7 cm, exophytic lesion arising from the inferior pole of the left kidney demonstrating density consistent with a cyst. No hydronephrosis or nephrolithiasis. Ureters: Normal. Bladder: Decompressed with Zarate catheter in situ. Aorta: Mild atherosclerotic calcifications. Retroperitoneum: No lymphadenopathy. Peritoneum: No ascites or pneumoperitoneum. Mesentery: There is mesenteric fat stranding around the colon from the splenic flexure to the low sigmoid colon. Stomach: Not distended. Small bowel: Not distended. Colon: There is significant colonic wall thickening involving the descending and sigmoid colon; no colonic distention. Scattered colonic diverticula are noted. Appendix: Not identified with certainty. Extraperitoneal pelvis: No lymphadenopathy. Prostate: Enlarged at 5.8 cm in transverse dimension. Abdominal wall: Periumbilical hernia containing mesenteric fat. Fat stranding of the subcutaneous tissues of the right gluteal area and flank. Bones: No acute fracture or destructive bone lesion. There is cortical thickening of the visualized portions of the left femur. IMPRESSION Impression: 1. Colonic wall thickening involving the descending and sigmoid colon with adjacent mesenteric fat stranding consistent with colitis, etiology could be infectious, inflammatory, or ischemic. 2. Subcutaneous soft tissue stranding of the superficial right flank and gluteal tissues, likely related to contusion from recent fall. 3. Exophytic cystic lesion in the left kidney incompletely evaluated without IV contrast. 4. Cortical thickening of the visualized portions of the left femur, this can be seen with Paget's disease, however this is not well evaluated on this CT, consider plain films for further evaluation. This final report is in agreement with the critical and emergent preliminary findings reported by the business services vice president customer relationship specialist. Results of the procedure were given to: PERSON CONTACTED: Amadeo Kirk PA-C DATE: 12/27/2016 TIME CALLED: [phone] PHONE/PAGER: [phone] LIPASE (12/27/2016 10:25 PM) Component Value Range Lipase 47 13-60 U/L Specimen Blood LIVER PANEL (12/27/2016 10:25 PM) Component Value Range Bilirubin Total 0.8 <=1.2 mg/dL AST 49(H)Comment: 0-40 U/L Adult reference ranges updated on 09/25/13 at 830am ALT 32Comment: 0-41 U/L The upper limit of normal for alanine aminotransferase (ALT) reference ranges for adults is controversial with some authorities recommending limit as low as 30 U/L for males and 19 U/L for females. Th ere is increased incidence of subclinical liver disease (e.g., early steatohepatitis) in patients with ALT values in the range of 31-41 U/L for males and 20-33 U/L for females. ALT values should alway s be interpreted in conjunction with clinical history, physical examination findings, and, if applicable, data from other diagnostic tests. ALP 104 40-129 U/L GGT 22 8-61 U/L Albumin 3.4 3.4-4.8 g/dL Total Protein 6.7 6.0-8.0 g/dL Specimen Blood TROPONIN T (12/27/2016 10:25 PM) Component Value Range Troponin-T 0.03 <=0.10 ng/mL Specimen Blood PTT (PARTIAL THROMBOPLASTIN TIME) (12/27/2016 10:25 PM) Component Value Range PTT 28 22-31 secs Specimen Blood
[2017-02-26 21:09] LABS: INR Greater than 9.60 INR (0.90-1.10)
[2017-02-26 21:10] LABS: Partial Thrombolplastin Time 78.4 Seconds (24-32)
[2017-02-26] MEDS ORDERED: PHYTONADIONE (VIT K1) 10 MG/ML AMPUL IV ONE (21:12)
[2017-02-26] MEDS ORDERED: PHYTONADIONE (VIT K1) 10 MG/ML AMPUL ONE (21:24)
[2017-02-26 22:07] LABS: Hematocrit 38.3 % (42.0-52.0); Hemoglobin 12.3 gm/dL (13.5-18.0); Mean Corpuscular Hemoglobin 30.5 pg (27-31); Mean Corpuscular Hgb Conc 32.1 g/dl (32-36); Mean Platelet Volume 10.3 fl (6.0-9.5); Neutrophil % 70.9 % (42-75.0); Platelet Count 213 K/mm3 (150-450); Red Blood Count 4.03 M/mm3 (4.7-6.0); Red Cell Distribution Width 15.3 % (11.5-14.0); White Blood Count 8.5 K/mm3 (4.0-10.5)
--- OUTSIDE RECORDS SUMMARY | 2017-02-26 22:13 | XMS REPORT | Continuity of Care Document ---
:1950 Author Organization [facility] ([facility]) Address [address] [place] [address] Phone [phone] Care Team Providers Name Role Phone Skyler Jones Primary Care Provider [phone] Source Comments This disclosure is being made pursuant to the Care Everywhere program, applicable federal and state laws, and may not contain all informaitonavailable regarding this patient.[facility] ([facility]) Active Allergies and Adverse Reactions Allergen [...] Noted Date Resolved Date Paced rhythm on lunchroom monitor 12/29/2016 01/18/2017 Overview: Monitoring with help of EP Hyperkalemia 12/27/2016 01/02/2017 Hypotension 12/27/2016 01/02/2017 Most Recent Encounters Date Type Specialty Providers Description 02/15/2017 Office Visit Alley Oakley MD Dx: Biventricular ICD Vascular Kenneth Vasquez, (implantable MD cardioverter-defibrill AschoOlivia osorio, ator) in 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, 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[employer] (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) 01/18/2017 Office Visit Alley Oakley MD Chief Comp: Patient Vascular Reported Reason For Visit 01/18/2017 Office Visit Alley Oakley MD Dx: Ischemic Vascular cardiomyopathy (Primary Dx) 01/04/2017 Nurse Triage General Care Yessenia Rizvi, Chief Comp: IP 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 Follow-up Call 12/28/2016 [facility] Heart and Ema Chavez Chief Comp: Patient Encounter Vascular MD Gloria Reported Reason For Visit 12/27/2016 - [facility] General Care Ahmed, Dx: Hyperkalemia 01/02/2017 Encounter [...] 35.9 C (96.6 F) 01/02/2017 8:00 AM PEDIATRIC LICENSED PRACTICAL NURSE Respiratory Rate 20 01/02/2017 8:00 AM PEDIATRIC LICENSED PRACTICAL NURSE Height 1.829 m (6') 02/15/2017 11:33 AM CDT Weight 142.883 kg (315 lb) 02/15/2017 11:33 AM CDT Body Mass Index 42.71 02/15/2017 11:33 AM CDT Oxygen Saturation 95% 01/02/2017 8:00 AM PEDIATRIC LICENSED PRACTICAL NURSE Plan of Care Date Type Specialty Providers Description 04/21/2017 Appointment Heart and Vascular Alley Jimenez MD Chief Comp: Patient [address] [place] [address] Visit [phone] (Fax) Health Maintenance Due Date Last Done [...] (A) Clear pH, Urine 5.0 <9.0 Spec [place], Urine 1.015 >1.000-<1.030 Glucose, Urine Negative Negative [...] mg/dL OSMOLALITY-URINE Result Value Ref Range Osmolality-Urine [phone] mOsm/k LACTIC ACID, WHOLE BLOOD (CRITICAL CARE [...] with Doppler, Color Flow and image documentation ([id number]) Ultrasound contrast - Definity([id number]) Inf. Vena Cava (IVC) / Pulm. Veins [...] of LVEF 50 Reason For Study Hypotension Coating Inspector Grecia Buitrago Interpreting Physician Bruno Choe MD electronically signed on 2016-12-28 13:51:19.06 SURGICAL PATHOLOGY EXAM Result Value Ref Range Case Report Surgical PathologyCase: [id number] Authorizing Provider:Regina Sapp MD Collected: 12/29/2016 03:42 PM Ordering Location: [id number]: 12/29/2016 04:34 PM Pathologist: Daniel Dubois MD [...] % Neutrophils-Auto Diff 88.9 % Neutrophils-Auto Diff 13004 (H) 5844-2563 /MM3 % Lymphocytes-Auto Diff 4.9 % Lymphocytes-Auto Diff 905 429-2533 /MM3 % Monocytes-Auto Diff 5.3 % Monocytes-Auto [...] % Neutrophils-Auto Diff 84.6 % Neutrophils-Auto Diff 44951 (H) 9082-7659 /MM3 % Lymphocytes-Auto Diff 7.3 % Lymphocytes-Auto Diff 4023 235-1410 /MM3 % Monocytes-Auto Diff 7.4 % Monocytes-Auto [...] Range % Manual Neutrophils 73.9 % Neutrophils-Manual 94366 (H) 4306-8646 /MM3 % Manual Lymphocytes 12.2 % Lymphocytes-Manual 2305 115-1296 /MM3 % Manual Monocytes 5.2 % Monocytes-Manual 847 130-860 /MM3 % Manual Bands 8.7 % Bands-Man Diff 1411 (H) 0-406 /MM3 ANC (Absolute Neutrophil Count) 79210 /MM3 CBC (COMPLETE BLOOD COUNT) Result Value [...] % Manual Neutrophils 75.0 % Neutrophils-Manual 6443 8242-4716 /MM3 % Manual Lymphocytes 11.2 % Lymphocytes-Manual 996 397-7809 /MM3 % Manual Monocytes 6.0 % Monocytes-Manual [...] Neutrophils-Auto Diff 69.9 % Neutrophils-Auto Diff 6100 0122-9773 /MM3 % Lymphocytes-Auto Diff 15.8 % Lymphocytes-Auto Diff 3662 029-0948 /MM3 % Monocytes-Auto Diff 10.4 % Monocytes-Auto [...] Neutrophils-Auto Diff 69.9 % Neutrophils-Auto Diff 6100 9195-9124 /MM3 % Lymphocytes-Auto Diff 15.8 % Lymphocytes-Auto Diff 8282 630-7690 /MM3 % Monocytes-Auto Diff 10.4 % Monocytes-Auto [...] Abnormality Status --------- ------ CBC (COMPLETE BLOOD COUNT)[[id number]] AbnormalFinal result DIFFERENTIAL[[id number]] AbnormalFinal result Please view results for these [...] - Jenna Dec 30, 2016 7:57 AM PEDIATRIC LICENSED PRACTICAL NURSE Procedure: CHEST - AP/PA Technique: Portable AP [...] Value Range Case Report Surgical Pathology Case: [id number] Authorizing Provider:Regina Sapp MD Collected: 12/29/2016 03:42 PM Ordering Location: [facility] [address] Received:12/29/2016 04:34 PM Pathologist: Daniel Dubois MD [...] all produce similar clinical syndromes. Treatment of rorwu-fdffk-queuyguftlxcnmsdwm with antibiotics or antimotility agents may increase the risk of complications, including hemolytic uremic syndrome, neurologic complications, and toxic megacolon. Aeromonas testing is not routinely performed. Test method: PCR amplification; G-volution GI Panel ([employer], [employer] C. DIFFICILE TOXIN SCREEN (12/28/2016 6:41 PM) [...] D3 and 25- hydroxyvitamin D2. Endocrine Society, [place] of Medicine (IOM), and World Health Organization [...] Doppler, Color Flow and image documentation ( [id number]) Ultrasound contrast - Definity([id number]) Inf. Vena Cava (IVC) / Pulm. Veins [...] of LVEF 50 Reason For Study Hypotension Coating Inspector Grecia Buitrago Interpreting Physician Bruno Choe MD [...] (12/28/2016 2:31 AM) Component Value Range Osmolality-Urine 277 438-0882 mOsm/k Specimen Urine CREATININE-URINE, RANDOM (12/28/2016 2:31 [...] For adult chronic CHF patients according to [place] [employer] ([place]HA) Functional Class for NT-proBNP levels in pg/mL: 1cl05gw Mean percentile percentile Class I: [id number] Class II:[id number] Class III: [id number] Class IV:[id number] Among patients with dyspnea, NT-proBNP is highly [...] Cloudy(A) Clear pH, Urine 5.0 <9.0 Spec [place], Urine 1.015 1.000-1.030 Glucose, Urine Negative Negative [...] Abnormality Status --------- ------ URINALYSIS WITH REFLEX C...[[id number]]AbnormalFinal result MICROSCOPIC URINALYSIS[[id number]] Abnormal Final result URINE CULTURE, REFLEXED[[id number]]Normal Final result Please view results for these tests on the individual orders. URINE CULTURE, REFLEXED (12/27/2016 10:45 PM) Component Value Range Quantitative Culture No growth at 10/999 dilution Specimen Culture - Urine, Indwelling cath CT ABDOMEN& PELVIS WO CONTRAST ([id number]) (12/27/2016 10:38 PM) Impressions Impression: 1. Colonic [...] and emergent preliminary findings reported by the senior resident care director account resolution expert. Results of the procedure were given to: PERSON CONTACTED:Amadeo Kirk PA-C DATE: 12/27/2016 TIME CALLED:[phone] PHONE/PAGER:[phone] Narrative Procedure: CT ABDOMEN & PELVIS WO CONTRAST ([id number]) Clinical Indication: Abdominal pain and right flank [...] - Tue Dec 28, 2016 1:41 PM PEDIATRIC LICENSED PRACTICAL NURSE Procedure: CT ABDOMEN & PELVIS WO CONTRAST ([id number]) Clinical Indication: Abdominal pain and right flank [...] and emergent preliminary findings reported by the senior resident care director account resolution expert. Results of the procedure were given to: PERSON CONTACTED: Amadeo Kirk PA-C DATE: 12/27/2016 TIME CALLED: [phone] PHONE/PAGER: [phone] LIPASE (12/27/2016 10:25 PM) Component Value Range [...]
[2017-02-26 22:15] LABS: Albumin * 3.3 gm/dl (3.4-5.0); BUN/Creatinine Ratio 17.2 (9.0-21.6); Bilirubin, Total 0.7 mg/dL (0.0-1.1); Calcium * 8.8 mg/dL (7.9-10.9); Potassium 4.5 mmol/L (3.4-4.6); Total Protein 7.3 gm/dL (6.2-8.2)
[2017-02-26 22:20] LABS: Anion Gap 10.3 mmol/L (6.8-13.8); Carbon Dioxide 32.2 mmol/L (24-32.6)
--- NOTE | 2017-02-27 00:16 | HP ---
<Arline Guzman - Last Filed: 02/27/17 00:17> Chief Complaint - Chief Complaint Date of Service: 02/26/17 Time of Service: 23:00 Chief Complaint: Fall, bleeding from multiple abrasions, elevated INR History of Present Illness: 66 years old male adm to the hospital with reports of a fall last night, multiple oozing skin tears and missed having his INR checked x2 weeks. Pt stated while at home, he turn incorrectly lost his balance and fell backward. He sustained multiple skin tears that kept oozing. He got concern and came to the ER because he had missed getting his INR check for the past 2 weeks.He denies dizziness,weakness, palpitation, shortness of breath, head injury or LOC before and after accident.PMH significant HTN, HLD, DM, obesity, JAXSON , CKD stage III,systolic heart failure with EF 20-25%, ischemic/nonischemic cardiomyopathy, S/P Bi-V ICD implantation; S/P AVJ ablation; S/P stent to LAD[S/ P STEMI in 2011]. In ER INR 9.6 he was given vitamin K 10mg IV, pressure dressing applied to BL arms skin tears. pt stated he had multiple falls in the past and refusing to ask for esl instructional assistant while hospitalized while ambulating. pt stated his halfway relationship has ended and he will be moving to [place] with his brother in a few more days, because his significant other is tired of caring for him. Plan of care discussed with pt he verbalized understanding and agree. 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 and left hearing deficit, Myocardial Infarction, Pneumonia, CPAP/BiPAP Home Use , Sleep Apnea - cpap, Other Patient History - Cancer: No Hx of Cancer Patient History - Surgical Procedures: Appendectomy, Cardiac stent, Pacemaker, Other - LAD x1 2011 Patient History - Other: None - Family History Mother Family History - Medical: No pertinent hx Family History - Cardiac/Respiratory: Hypertension, Other Family History - Cancer: No pertinent family hx Father Family History - Medical: Family History - Cardiac/Respiratory: Coronary Heart Disease, Other Family History - Cancer: Other - Social History Living Situations: significant other Abuse History: No History of abuse Psych History: No pertinent hx Smoking Status: Never smoker Have you smoked in the past 12 months: No Do you dip or chew tobacco: No Alcohol Use: none Drug Use: none - Immunizations Immunizations Up to Date: No Hx Pneumococcal Vaccination: Yes History of Influenza Vaccine: No Review Of Systems (GEN) - Review of Systems Generalized/Overall Review: Present: No Symptoms Reported EENTM: Present: No Symptoms Reported Respiratory: Present: No Symptoms Reported Cardiac: Present: No Symptoms Reported Abdominal: Present: No Symptoms Reported Genitourinary: Present: No Symptoms Reported Musculoskeletal: Present: Joint Pain Neurological: Present: Parasthesia, Tingling Skin: Present: Bruising, Other - skin tears Endocrine: Present: No Symptoms Reported Immunizations: IMMUNIZATION HX Immunizations Up to Date No History of Influenza Vaccine No Hx Pneumococcal Vaccination Yes Allergies/Adverse Reactions: Allergies Allergy/AdvReac Type Severity Reaction Status Date / Time atenolol Allergy Verified 02/27/17 10:13 enoxaparin sodium Allergy Verified 02/27/17 10:13 [From Lovenox] gabapentin Allergy Verified 02/27/17 10:13 Home Medications: HOME MEDICATIONS Allopurinol [Zyloprim] 300 mg PO DAILY 10/25/16 [Last Taken Unknown] Carvedilol [Coreg] 25 mg PO BID 10/25/16 [Last Taken Unknown] Glimepiride [Amaryl] 2 mg PO DAILY 10/25/16 [Last Taken Unknown] Polyethylene Glycol 3350 [Miralax] 17 gm PO PRN PRN 10/25/16 [Last Taken Unknown ] Ropinirole HCl 5 mg PO HS 10/25/16 [Last Taken Unknown] Simvastatin 40 mg PO HS 10/25/16 [Last Taken Unknown] Spironolactone [Aldactone] 25 mg PO BID 10/25/16 [Last Taken Unknown] Tamsulosin HCl [Flomax] 0.4 mg PO DAILY 10/25/16 [Last Taken Unknown] Aspirin [Aspirin Enteric Coated] 81 mg PO DAILY 11/20/16 [Last Taken Unknown] Metolazone [Zaroxolyn] 2.5 mg PO DAILY PRN 11/20/16 [Last Taken Unknown] Potassium Chloride [Klor-Con M20] 20 meq PO DAILY 11/20/16 [Last Taken Unknown] Terazosin HCl [Hytrin] 1 mg PO DAILY 11/20/16 [Last Taken Unknown] Torsemide [Demadex] 80 mg PO BID 11/20/16 [Last Taken Unknown] Warfarin Sodium [Coumadin] 5 mg PO SUTUWEFRSA@1700 11/20/16 [Last Taken Unknown] oxyCODONE HCL/ACETAMINOPHEN [Percocet 5 MG/325 MG] 2 tab PO QID PRN 11/20/16 [ Last Taken Unknown] Warfarin Sodium [Coumadin] 6 mg PO MOTH@1700 02/27/17 [Last Taken Unknown] Exam - Exam Vital Signs: Vital Signs - Last Taken Temp 36.8 C 02/26/17 22:42 Pulse 62 02/26/17 22:42 Resp 18 02/26/17 22:42 BP 120/64 02/26/17 22:42 Pulse Ox 92 02/26/17 22:42 Constitutional: Present: Alert, Oriented x3, Cooperative, Well developed, No distress, Middle aged, Morbidly obese ENT Exam: Present: moist mucous membranes Eye Exam: bilateral eye: PERRL Neck: Present: full range of motion Back Exam: Present: normal inspection Breasts: Present: Exam deferred Respiratory: Present: chest non-tender, normal breath sounds, no respiratory distress, no accessory muscle use, decreased breath sounds Cardiovascular/Chest: Present: normal peripheral pulses, no chest tenderness, no edema, no gallop, irregularly irregular Peripheral Pulses: dorsalis-pedis (R): 2+, dorsalis-pedis (L): 2+ Abdomen: Present: Normal bowel sounds, soft, nontender, no rebound tenderness /Rectal: Present: Exam deferred Extremity: Present: normal range of motion, non-tender, normal inspection, no calf tenderness, pedal edema - trace Skin Exam: Present: normal color, warm/dry, no cyanosis, other - bruising and skin tears Lymphatic: Present: no adenopathy Neurologic: Present: oriented x 3 Appearance: Present: appropriate appearance Eye contact: Present: cooperative, good eye contact Thoughts: Present: normal thought pattern, no apparent hallucination Diagnostic Studies: Laboratory Results WBC 8.5 K/mm3 (4.0-10.5) 02/26/17 20:25 RBC 4.03 M/mm3 (4.7-6.0) L 02/26/17 20:25 Hgb 12.3 gm/dL (13.5-18.0) L 02/26/17 20:25 Hct 38.3 % (42.0-52.0) L 02/26/17 20:25 MCV 95.0 fl (78-100) 02/26/17 20:25 MCH 30.5 pg (27-31) 02/26/17 20: MCHC 32.1 g/dl (32-36) 02/26/17 20:25 RDW 15.3 % (11.5-14.0) H 02/26/17 20:25 Plt Count 213 K/mm3 (150-450) 02/26/17 20: MPV 10.3 fl (6.0-9.5) H 02/26/17 20:25 Immature Gran % (Auto) 0.20 % (0.001-0.429) 02/26/17 20: Immature Gran # (Auto) 0.02 K/mm3 (0.000-0.0310) 02/26/17 20:25 Neutrophils % 70.9 % (42-75.0) 02/26/17 20:25 Lymphocytes % 19.6 % (20-51) L 02/26/17 20: Monocytes % 6.6 % (0.0-9) 02/26/17 20: Eosinophils % 2.5 % (0.0-3.0) 02/26/17 20: Basophils % 0.2 % (0.0-1.0) 02/26/17 20: Nucleated RBC % 0.0 k/mm3 (0-1) 02/26/17 20: Neutrophils # 6.0 K/mm3 (1.3-6.0) 02/26/17 20: Lymphocytes # 1.7 k/mm3 (1.5-3.5) 02/26/17 20: Monocytes # 0.6 k/mm3 (0.0-1.0) 02/26/17 20: Eosinophils # 0.2 k/mm3 (0.0-0.7) 02/26/17 20: Absolute Basophils 0.0 k/mm3 (0.0-0.1) 02/26/17 20:25 PT Greater than 100.0 Seconds (9.4-11.4) H 02/26/17 20:25 INR (Anticoag Therapy) Greater than 9.60 INR (0.90-1.10) H* 02/26/17 20:25 PTT ([place]) 78.4 Seconds (24-32) H 02/26/17 20:25 Sodium 140 mmol/L (132-142) 02/26/17 20:25 Plasma Sodium 141 mmol/L (130-142) 02/26/17 20:25 Potassium 4.5 mmol/L (3.4-4.6) 02/26/17 20:25 Chloride 102 mmol/L (97-106) 02/26/17 20:25 Carbon Dioxide 32.2 mmol/L (24-32.6) 02/26/17 20:25 Anion Gap 10.3 mmol/L (6.8-13.8) 02/26/17 20:25 BUN 27 mg/dL (6-23) H 02/26/17 20:25 Creatinine 1.57 mg/dL (0.4-1.4) H 02/26/17 20:25 Est GFR (Non-Af Amer) 47 mL/min (60-130) L 02/26/17 20:25 BUN/Creatinine Ratio 17.2 (9.0-21.6) 02/26/17 20:25 Random Glucose 133 mg/dL (70-110) H 02/26/17 20:25 Calcium 8.8 mg/dL (7.9-10.9) 02/26/17 20:25 Calcium Adj for Albumin 9.0 mg/dL (8.4-10.2) 02/26/17 20:25 Total Bilirubin 0.7 mg/dL (0.0-1.1) 02/26/17 20:25 AST 23 U/L (0-48) 02/26/17 20:25 ALT 24 U/L (19-67) 02/26/17 20:25 Alkaline Phosphatase 118 U/L (50-170) 02/26/17 20:25 Total Protein 7.3 gm/dL (6.2-8.2) 02/26/17 20:25 Albumin 3.3 gm/dl (3.4-5.0) L 02/26/17 20:25 Assessment/Plan - Narrative Narrative: Supra-therapeutic INR: pt stated he had missed getting INR check x2 weeks On adm INR 9.6, Vitamin K 10mg x1 given in ER Monitor INR daily and pharmacy to dose Pressure dressing applied to oozing skin tears and no longer bleeding. Will consider FFP if bleeding resumed A-fib On Coumadin, will hold dose due to INR >9 Monitor on telemetry Plan same as #1 Diabetes Resume home dose of medications Consistent cardiac diet Accu-check AC+HS, pt is diet controlled Systolic CHF- stable EF 20-25% Continue with home dose of medications Strict I/O and daily weight Sleep apnea: Can continue with cpap CKD- stable On adm Bun/ Cre 27/1.57 at pt baseline continue to monitor BMP Code status Full VTE therapeutic Coumadin Anticipate discharge home 0-2 days and follow up with PCP Time 40 minutes and previous records reviewed. - Assessment/Plan (1) Supratherapeutic INR Problem: Acute (2) Congestive heart failure Problem: Chronic QualifierTitle: Congestive heart failure type: systolic (3) A-fib Problem: Chronic (4) CKD (chronic kidney disease), stage III Problem: Chronic (5) Diabetes mellitus type 2 in obese Problem: Chronic (6) JAXSON (obstructive sleep apnea) Problem: Chronic <Sykler Mi - Last Filed: 02/27/17 11:36> Immunizations: IMMUNIZATION HX Immunizations Up to Date No History of Influenza Vaccine No Hx Pneumococcal Vaccination Yes Exam - Exam Vital Signs: Vital Signs - Last Taken Temp 36.6 C 02/27/17 09:00 Pulse 71 02/27/17 10:08 Resp 20 02/27/17 09:00 BP 118/58 02/27/17 09:12 Pulse Ox 96 02/27/17 09:00 Diagnostic Studies: Abnormal Lab Results 02/27/17 02/27/17 Range/Units 06:10 06:10 PT 18.9 H (9.4-11.4) Seconds INR (Anticoag Therapy) 1.82 H (0.90-1.10) INR Random Glucose 156 H (70-110) mg/dL Laboratory Results WBC 8.5 K/mm3 (4.0-10.5) 02/26/17 20:25 RBC 4.03 M/mm3 (4.7-6.0) L 02/26/17 20:25 Hgb 12.3 gm/dL (13.5-18.0) L 02/26/17 20:25 Hct 38.3 % (42.0-52.0) L 02/26/17 20:25 MCV 95.0 fl (78-100) 02/26/17 20:25 MCH 30.5 pg (27-31) 02/26/17 20: MCHC 32.1 g/dl (32-36) 02/26/17 20:25 RDW 15.3 % (11.5-14.0) H 02/26/17 20:25 Plt Count 213 K/mm3 (150-450) 02/26/17 20: MPV 10.3 fl (6.0-9.5) H 02/26/17 20:25 Immature Gran % (Auto) 0.20 % (0.001-0.429) 02/26/17 20: Immature Gran # (Auto) 0.02 K/mm3 (0.000-0.0310) 02/26/17 20:25 Neutrophils % 70.9 % (42-75.0) 02/26/17 20:25 Lymphocytes % 19.6 % (20-51) L 02/26/17 20:25 Monocytes % 6.6 % (0.0-9) 02/26/17 20: Eosinophils % 2.5 % (0.0-3.0) 02/26/17 20: Basophils % 0.2 % (0.0-1.0) 02/26/17 20: Nucleated RBC % 0.0 k/mm3 (0-1) 02/26/17 20: Neutrophils # 6.0 K/mm3 (1.3-6.0) 02/26/17 20: Lymphocytes # 1.7 k/mm3 (1.5-3.5) 02/26/17 20: Monocytes # 0.6 k/mm3 (0.0-1.0) 02/26/17 20: Eosinophils # 0.2 k/mm3 (0.0-0.7) 02/26/17 20:25 Absolute Basophils 0.0 k/mm3 (0.0-0.1) 02/26/17 20:25 PT 18.9 Seconds (9.4-11.4) H 02/27/17 06:10 INR (Anticoag Therapy) 1.82 INR (0.90-1.10) H 02/27/17 06:10 PTT ([place]) 78.4 Seconds (24-32) H 02/26/17 20:25 Sodium 137 mmol/L (132-142) 02/27/17 06:10 Plasma Sodium 138 mmol/L (130-142) 02/27/17 06:10 Potassium 4.0 mmol/L (3.4-4.6) 02/27/17 06:10 Chloride 103 mmol/L (97-106) 02/27/17 06:10 Carbon Dioxide 26.4 mmol/L (24-32.6) 02/27/17 06:10 Anion Gap 11.6 mmol/L (6.8-13.8) 02/27/17 06:10 BUN 23 mg/dL (6-23) 02/27/17 06:10 Creatinine 1.22 mg/dL (0.4-1.4) 02/27/17 06:10 Est GFR (Non-Af Amer) 63 mL/min (60-130) D 02/27/17 06:10 BUN/Creatinine Ratio 18.9 (9.0-21.6) 02/27/17 06:10 Random Glucose 156 mg/dL (70-110) H 02/27/17 06:10 Calcium 8.7 mg/dL (7.9-10.9) 02/27/17 06:10 Calcium Adj for Albumin 9.0 mg/dL (8.4-10.2) 02/26/17 20:25 Total Bilirubin 0.7 mg/dL (0.0-1.1) 02/26/17 20:25 AST 23 U/L (0-48) 02/26/17 20:25 ALT 24 U/L (19-67) 02/26/17 20:25 Alkaline Phosphatase 118 U/L (50-170) 02/26/17 20:25 Total Protein 7.3 gm/dL (6.2-8.2) 02/26/17 20:25 Albumin 3.3 gm/dl (3.4-5.0) L 02/26/17 20:25 Assessment/Plan - Narrative Narrative: Most like, INR went up because of the addition of gabapentin to his treatment. We have discussed before, but now discussed again, the need to always check his protime when advised, and especially when starting or stopping any new medicine , recommended within two days of the change. He will be going to [place] to be with his brother anytime within the next two weeks. He has to find a ride to [place] first. Record reviewed and patient examined. I personally directed all of our nurse practitioner mati's care for this patient. I agree with her plan.
[2017-02-27] MEDS ORDERED: METOLAZONE 2.5 MG TABLET PO PRN (00:31)
[2017-02-27] MEDS ORDERED: oxyCODONE HCL/ACETAMINOPHEN 1 TAB TABLET PO PRN (00:31)
[2017-02-27] MEDS ORDERED: POLYETHYLENE GLYCOL 3350 119 GM BTL PO PRN ×2 (00:45→07:07)
[2017-02-27 06:26] LABS: Prothrombin Time (Patient) 18.9 Seconds (9.4-11.4)
[2017-02-27 06:28] LABS: Anion Gap 11.6 mmol/L (6.8-13.8); BUN/Creatinine Ratio 18.9 (9.0-21.6); Calcium * 8.7 mg/dL (7.9-10.9); Carbon Dioxide 26.4 mmol/L (24-32.6); Estimated Creat Clear 66.3
[2017-02-27 06:32] LABS: INR 1.82 INR (0.90-1.10)
[2017-02-27 06:59] VITALS: BP 118/58
[2017-02-27] MEDS ORDERED: ALLOPURINOL 300 MG TABLET PO SCH (09:00)
[2017-02-27] MEDS ORDERED: POTASSIUM CHLORIDE 20 MEQ TABLET.SA PO SCH (09:00)
[2017-02-27] MEDS ORDERED: TERAZOSIN HCL 1 MG CAPSULE PO SCH (09:00)
[2017-02-27] MEDS ORDERED: SPIRONOLACTONE 25 MG TABLET PO SCH (09:00)
[2017-02-27] MEDS ORDERED: CARVEDILOL 25 MG TABLET PO SCH (09:00)
[2017-02-27] MEDS ORDERED: LISINOPRIL 10 MG TABLET PO SCH (09:00)
[2017-02-27] MEDS ORDERED: TAMSULOSIN HCL 0.4 MG CAP.SR.24H PO SCH (09:00)
[2017-02-27] MEDS ORDERED: GLIMEPIRIDE 2 MG TABLET PO SCH (09:00)
[2017-02-27] MEDS ORDERED: TORSEMIDE 20 MG TABLET PO SCH (09:00)
[2017-02-27] MEDS ORDERED: WARFARIN SODIUM 5 MG TABLET PO STA (11:22)
[2017-02-27] MEDS ORDERED: SIMVASTATIN 40 MG TABLET PO SCH (21:00)
[2017-02-27] MEDS ORDERED: rOPINIRole HCL 1 MG TABLET PO SCH (21:00)
[2017-02-28] MEDS ORDERED: WARFARIN SODIUM 5 MG TABLET PO SCH (17:00)
--- NOTE | 2017-03-08 19:59 | DS ---
(1) Acute renal failure superimposed on stage 2 chronic kidney disease Problem: Resolved (2) Bleeding Problem: Resolved (3) Supratherapeutic INR Problem: Resolved (4) CHF (congestive heart failure) Problem: Chronic Qualifiers: Congestive heart failure type: unspecified congestive heart failure type Congestive heart failure chronicity: acute on chronic Qualified Code(s): I50.9 - Heart failure, unspecified (5) A-fib Problem: Chronic Qualifiers: (6) CAD (coronary artery disease) Problem: Chronic Qualifiers: Coronary Disease-Associated Artery/Lesion type: [place] artery [place] vs. transplanted heart: [place] heart Associated angina: without angina Qualified Code(s): I25.10 - Atherosclerotic heart disease of [place] coronary artery without angina pectoris (7) Cardiomyopathy Problem: Chronic (8) Diabetes mellitus type 2 in obese Problem: Chronic (9) Falls frequently Problem: Chronic (10) Morbid obesity Problem: Chronic Qualifiers: Obesity type: unspecified obesity type Qualified Code(s): E66.01 - Morbid ( severe) obesity due to excess calories (11) JAXSON (obstructive sleep apnea) Problem: Chronic (12) Pacemaker Problem: Chronic (13) Balance disorder Problem: Chronic (14) Skin tear Problem: Acute Procedures Performed: none Discharge Disposition: Home self care Disposition: Home self-care Condition: Good Discharge Diet: Low salt Referrals: Skyler Mi MD [Primary Care Provider] - Problem Oriented Discharge Instructions to Patient/Family: Warfarin Coagulopathy Additional Patient Instructions (free text): Don't miss getting protimes when you need them. Protime in 5 days, in the morning time. Coumadin 4 mg daily. We gave you one dose here in the hospital, you start 4 mg daily tomorrow. Prescriptions (Any new or edited meds): Lisinopril [Zestril] 10 mg PO DAILY #30 tablet Warfarin Sodium [Coumadin] 4 mg PO DAILY #30 tablet Complete Home Medications List: Complete Home Medication List: Allopurinol [Zyloprim] 300 mg PO DAILY 10/25/16 Carvedilol [Coreg] 25 mg PO BID 10/25/16 Glimepiride [Amaryl] 2 mg PO DAILY 10/25/16 Polyethylene Glycol 3350 [Miralax] 17 gm PO PRN PRN 10/25/16 Ropinirole HCl 5 mg PO HS 10/25/16 Simvastatin 40 mg PO HS 10/25/16 Spironolactone [Aldactone] 25 mg PO BID 10/25/16 Tamsulosin HCl [Flomax] 0.4 mg PO DAILY 10/25/16 Aspirin [Aspirin Enteric Coated] 81 mg PO DAILY 11/20/16 Metolazone [Zaroxolyn] 2.5 mg PO DAILY PRN 11/20/16 Potassium Chloride [Klor-Con M20] 20 meq PO DAILY 11/20/16 Terazosin HCl [Hytrin] 1 mg PO DAILY 11/20/16 Torsemide [Demadex] 80 mg PO BID 11/20/16 oxyCODONE HCL/ACETAMINOPHEN [Percocet 5 MG/325 MG] 2 tab PO QID PRN 11/20/16 Lisinopril [Zestril] 10 mg PO DAILY #30 tablet 02/27/17 Warfarin Sodium [Coumadin] 4 mg PO DAILY #30 tablet 02/27/17 Amb Orders for Discharge: Prothrombin Time Time Frame: 5 Days, Location: Determined By Patient
== END 2017-02-27 13:14 | disposition home or self-care (01) ==
LOC: ER 20:02 → MS 22:06
PROVIDERS: ADMIT Nurse Practitioner; ATTEND Family Medicine
DX: T45.511A Poisoning by anticoagulants, accidental (unintentional), initial encounter (principal); Z79.01 Long term (current) use of anticoagulants; S61.511A Laceration without foreign body of right wrist, initial encounter; I12.9 Hypertensive chronic kidney disease with stage 1 through stage 4 chronic kidney disease, or unspecified chronic kidney disease; N18.2 Chronic kidney disease, stage 2 (mild); N17.9 Acute kidney failure, unspecified; I48.2 Chronic atrial fibrillation; I50.9 Heart failure, unspecified; I25.10 Atherosclerotic heart disease of native coronary artery without angina pectoris; I42.9 Cardiomyopathy, unspecified; E66.01 Morbid (severe) obesity due to excess calories; G47.33 Obstructive sleep apnea (adult) (pediatric)
CPT/HCPCS: 36415; 80048; 80053; 85025; 85610; 85730; 96374; 99284; G0378

== ENCOUNTER 2017-03-27 02:29 | Emergency (ER) | payer MEDICARE ==
[2017-03-27] MEDS ORDERED: DEXTROSE 50%-WATER 50 ML SYRG ONE ×2 (02:34→03:41)
[2017-03-27] MEDS ORDERED: DEXTROSE 50%-WATER 50 ML SYRG IV ONE ×2 (02:47→03:42)
[2017-03-27] MEDS ORDERED: NALOXONE HCL 1 MG/1 ML SYRG ONE ×2 (02:55→03:03)
[2017-03-27] MEDS ORDERED: NALOXONE HCL 1 MG/1 ML SYRG IV ONE ×2 (02:56→03:05)
[2017-03-27] MEDS ORDERED: NALOXONE HCL 1 MG/1 ML SYRG IM ONE (03:07)
[2017-03-27 03:14] LABS: INR 1.15 INR (0.90-1.10)
[2017-03-27 03:27] LABS: ALT 18 U/L (19-67); AST 28 U/L (0-48); Alkaline Phosphatase * 104 U/L (50-170); Anion Gap 16.9 mmol/L (6.8-13.8); BUN/Creatinine Ratio 15.5 (9.0-21.6); Bilirubin, Total 0.3 mg/dL (0.0-1.1); Ca. Corrected For Albumin 8.2 mg/dL (8.4-10.2); Calcium * 7.7 mg/dL (7.9-10.9); Carbon Dioxide 25.9 mmol/L (24-32.6); Chloride 99 mmol/L (97-106); Glucose * 106 mg/dL (70-110); Potassium 4.8 mmol/L (3.4-4.6); Sodium 137 mmol/L (132-142)
[2017-03-27 03:34] LABS: Blood Urea Nitrogen 104 mg/dL (6-23); Troponin I Less than 0.017 ng/ml (0.00-0.10)
--- NOTE | 2017-03-27 03:39 | ERNOTE ---
Medical Problem HPI - Narrative Date of Service: 03/27/17 - General Chief Complaint: Diabetes Related Problem Source: patient, family Exam Limitations: clinical condition - Immun/Allergies/Home Medications Immunizations: IMMUNIZATION HX Immunizations Up to Date No History of Influenza Vaccine No Hx Pneumococcal Vaccination Yes Allergies/Adverse Reactions: Allergies atenolol Allergy (Verified 02/27/17 10:13) enoxaparin sodium [From Lovenox] Allergy (Verified 02/27/17 10:13) gabapentin Allergy (Verified 02/27/17 10:13) Home Medications: HOME MEDICATIONS Allopurinol [Zyloprim] 300 mg PO DAILY 10/25/16 [Last Taken Unknown] Carvedilol [Coreg] 25 mg PO BID 10/25/16 [Last Taken Unknown] Glimepiride [Amaryl] 2 mg PO DAILY 10/25/16 [Last Taken Unknown] Polyethylene Glycol 3350 [Miralax] 17 gm PO PRN PRN 10/25/16 [Last Taken Unknown ] Ropinirole HCl 5 mg PO HS 10/25/16 [Last Taken Unknown] Simvastatin 40 mg PO HS 10/25/16 [Last Taken Unknown] Spironolactone [Aldactone] 25 mg PO BID 10/25/16 [Last Taken Unknown] Tamsulosin HCl [Flomax] 0.4 mg PO DAILY 10/25/16 [Last Taken Unknown] Aspirin [Aspirin Enteric Coated] 81 mg PO DAILY 11/20/16 [Last Taken Unknown] Metolazone [Zaroxolyn] 2.5 mg PO DAILY PRN 11/20/16 [Last Taken Unknown] Potassium Chloride [Klor-Con M20] 20 meq PO DAILY 11/20/16 [Last Taken Unknown] Terazosin HCl [Hytrin] 1 mg PO DAILY 11/20/16 [Last Taken Unknown] Torsemide [Demadex] 80 mg PO BID 11/20/16 [Last Taken Unknown] oxyCODONE HCL/ACETAMINOPHEN [Percocet 5 MG/325 MG] 2 tab PO QID PRN 11/20/16 [ Last Taken Unknown] Lisinopril [Zestril] 10 mg PO DAILY #30 tablet 02/27/17 [Last Taken Unknown] Warfarin Sodium [Coumadin] 4 mg PO DAILY #30 tablet 02/27/17 [Last Taken Unknown ] - History of Present History Date (Duration): 03/27/17 Time (Timing): 03:23 Timing: constant Severity: severe Modifying Factors - (Improves): Present: medication Modifying Factors - (Worsens): Present: medication - Mr. Kwon is a 66-year- old male with history of diabetes and coronary artery disease with congestive heart failure. Patient has had recent weight gain and has had his oral diuretic regimen increased as recently as this past Tuesday. Currently he is taking metolazone as well as torsaside 80 mg 4 times daily. Patient's states she sleeps in the room next to him and heard him fall to the ground approximately 45 minutes prior to arrival. When ambulance arrived patient with marked mental status changes and a blood glucose less than 60. Patient given 1 amp of D50 with blood glucose at the time of arrival at our ER less than 40. There has been some alternate blood glucose readings provided by fire department but there levels more than likely erroneous as a do not correlate with current mental status. After each amp D50 patient's mental status improved mildly. Patient very hypotensive at time of arrival as can be seen from nurse's notes. Patient also takes Percocet and not sure how many of the above he has taken as he has chronic bilateral knee pain. Review of Systems - Review of Systems Constitutional: Present: weakness, decreased activity level EYE: Present: other - patient's pupils pinpoint ENT: Present: no symptoms reported Respiratory: Present: no symptoms reported Cardiology: Present: syncope, edema Gastrointestinal/Abdominal: Present: no symptoms reported Genitourinary: Present: no symptoms reported Musculoskeletal: Present: joint pain - patient reporting bilateral knee pain, chronic neck pain, chronic low back pain Skin: Present: other - patient with abrasions to both knees caused by today's fall. Endocrine: Present: See HPI Hematologic/Lymphatic: Present: other - patient is on Coumadin chronically. Psych: Present: other - patient with marked mental status changes at time of EMS arrival mildly improved time of ER arrival. Above wax and wane depending on medications given during his ER stay. - Patient's Past Medical History Patient History - Medical: Diabetes Type 2, Osteoarthritis, Renal Failure, Other Patient History - Cardiac/Respiratory: Atrial Fibrillation, Coronary Heart Disease, CHF, CVA/Stroke, Myocardial Infarction, Pneumonia, CPAP/BiPAP Home Use , Sleep Apnea, Other Patient History - Cancer: No Hx of Cancer Patient History - Surgical Procedures: Appendectomy, Cardiac stent, Pacemaker, Other Patient History - Other: None - Family History Mother Family History - Medical: No pertinent hx Family History - Cardiac/Respiratory: Hypertension, Other Family History - Cancer: No pertinent family hx Father Family History - Medical: Family History - Cardiac/Respiratory: Coronary Heart Disease, Other Family History - Cancer: Other - Social History Living Situations: significant other Abuse History: No History of abuse Psych History: No pertinent hx Alcohol Use: none Drug Use: none - Immunizations Immunizations Up to Date: No Hx Pneumococcal Vaccination: Yes History of Influenza Vaccine: No Physical Exam - Physical Exam General Appearance: Present: severe distress, lethargic, sleeping/easy to arouse Eye Exam: Normal inspection: bilateral, PERRL: bilateral - bilateral small pupils at time arrival which improved with Narcan, EOMI: bilateral Ears, Nose, Throat: Present: normal ENT inspection, normal pharynx, other - poor general dentition missing multiple teeth. No blood posterior pharynx no injury to tongue. TMs without retraction, perforation or free fluid. Nose without blood, discharge, or septal deviation. Neck: Present: full range of motion, tender posterior midline, other - patient does have mild cervical paravertebral muscle pain which he states is at baseline. Respiratory: Present: no respiratory distress, normal breath sounds, no accessory muscle use, chest nontender, lungs clear Cardiovascular/Chest: Present: irregularly irregular Peripheral Pulses: N=norm/S=strong/W=weak/B=bound/A=absent: Carotid (R): Normal , Carotid (L): Normal, Radial (R): Normal, Radial (L): Normal, Femoral (R): Normal, Femoral (L): Normal Gastrointestinal/Abdominal: Present: normal bowel sounds, nontender, nondistended, soft, no organomegaly Rectal Exam: Present: deferred Male Genitals Exam: Present: normal genitalia, other - rectal exam not performed Extremity Exam: Present: normal inspection, non-tender, normal range of motion, no edema, other - careful evaluation pelvis and shoulder girdle shows no tenderness. Patient has chronic pain localized to both knees which are unchanged. Upper extremity without problems. Neurological Exam: Present: alert, oriented, normal mood/affect, no motor/ sensory deficits DTR: N=norm/NB=norm/brisk/A=abs/DD=dull/dimin/HC=hyperactive: Bicep (R): Normal , Bicep (L): Normal, Tricep (R): Normal, Tricep (L): Normal, Knee (R): Normal, Knee (L): Normal Skin Exam: Present: normal color, warm/dry, other - patient with a few abrasions noted over both knees. Lymphatic Exam: Present: no adenopathy - the urine ED Progress - Results and Orders Patient's Lab Results:: I have reviewed the patient's lab results. - Vital Signs Patient's Vital Signs:: I have reviewed the patient's vital signs. - EKG EKG: other - paced rhythm. - Progress/Reassessment Chief Complaint: Diabetes Related Problem Progress:: Improved - patient with mild improvement mental status on serial examination. - Transfer of Care Pending Results: CT/MRI results - CT head without acute bleed. No acute abdomen now is reported. Departure - Departure Clinical Impression: Congestive heart failure, Hypoglycemia, Acute renal failure, Hypercapnic respiratory failure, CKD (chronic kidney disease), stage III Condition: Critical Referrals: Skyler Mi MD [Primary Care Provider] - - Critical Care Total Time (mins): 90
[2017-03-27 03:42] LABS: Hematocrit 38.7 % (42.0-52.0); Hemoglobin 10.7 gm/dL (13.5-18.0); Mean Cell Volume 113.2 fl (78-100); Mean Corpuscular Hemoglobin 31.3 pg (27-31); Mean Corpuscular Hgb Conc 27.6 g/dl (32-36); Mean Platelet Volume 10.4 fl (6.0-9.5); Neutrophil # 8.9 K/mm3 (1.3-6.0); Platelet Count 169 K/mm3 (150-450); Red Blood Count 3.42 M/mm3 (4.7-6.0); Red Cell Distribution Width 15.8 % (11.5-14.0); White Blood Count 11.1 K/mm3 (4.0-10.5)
--- OUTSIDE RECORDS SUMMARY | 2017-03-27 03:53 | XMS REPORT | Continuity of Care Document ---
:1950 Author Organization [facility] ([facility]) Address [address] [place] [address] Phone [phone] Care Team Providers Name Role Phone Skyler Jones Primary Care Provider [phone] Source Comments This disclosure is being made pursuant to the Care Everywhere program, applicable federal and state laws, and may not contain all informaitonavailable regarding this patient.[facility] ([facility]) Active Allergies and Adverse Reactions Allergen [...] Noted Date Resolved Date Paced rhythm on athletic monitor 12/29/2016 01/18/2017 Overview: Monitoring with help of EP Hyperkalemia 12/27/2016 01/02/2017 Hypotension 12/27/2016 01/02/2017 Most Recent Encounters Date Type Specialty Providers Description 02/15/2017 Office Visit Alley Oakley MD Dx: Biventricular ICD Vascular Kenneth Vasquez, (implantable MD cardioverter-defibrill AschoOlivia osorio, ator) in place, 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 [employer] (Primary Dx) 01/18/2017 Office Visit Alley Oakley MD Chief Comp: Patient Vascular Reported Reason For Visit 01/18/2017 Office Visit Alley Oakley MD Dx: Ischemic Vascular cardiomyopathy (Primary Dx) 01/04/2017 Nurse Triage General Care Yessenia Rizvi, Chief Comp: IP Inpatient - 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 12/28/2016 [facility] Ema Chavez Chief Comp: Patient Encounter Vascular MD Gloria Reported Reason For Visit 12/27/2016 - [facility] General Care Ahmed, Dx: Hyperkalemia 01/02/2017 Encounter Inpatient - Adult MD Juan (Primary Dx) Deniz Kingston MD Hadder, Brent A, MD Hasan, Yazan Z, MD Social History Tobacco Use Types Packs/Day Years Used Date Never Smoker Smokeless Tobacco: Never Used Last Filed Vital Signs Vital Sign Reading Time Taken Blood Pressure 162/78 02/15/2017 11:33 AM CDT Pulse 66 02/15/2017 11:33 AM CDT Temperature 35.9 C (96.6 F) 01/02/2017 8:00 AM 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 Respiratory Rate 20 01/02/2017 8:00 AM 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 Height 1.829 m (6') 02/15/2017 11:33 AM CDT Weight 142.883 kg (315 lb) 02/15/2017 11:33 AM CDT Body Mass Index 42.71 02/15/2017 11:33 AM CDT Oxygen Saturation 95% 01/02/2017 8:00 AM 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 Plan of Care Date Type Specialty Providers Description 04/21/2017 Appointment Heart and Vascular Alley Jimenez MD Chief Comp: Patient [address] [place] [address] Visit [phone] (Fax) Health Maintenance Due Date Last Done [...] VENOUS (01/02/2017 7:50 AM)Only the most recent of3 resultswithin the [...] (A) Clear pH, Urine 5.0 <9.0 Spec [place], Urine 1.015 >1.000-<1.030 Glucose, Urine Negative Negative [...] mg/dL OSMOLALITY-URINE Result Value Ref Range Osmolality-Urine [phone] mOsm/k LACTIC ACID, WHOLE BLOOD (CRITICAL CARE [...] with Doppler, Color Flow and image documentation ([id number]) Ultrasound contrast - Definity([id number]) Inf. Vena Cava (IVC) / Pulm. 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[employer] Grecia Buitrago Interpreting Physician Bruno Choe MD electronically signed on 2016-12-28 13:51:19.06 SURGICAL PATHOLOGY EXAM Result Value Ref Range Case Report Surgical PathologyCase: [id number] Authorizing Provider:Regina Sapp MD Collected: 12/29/2016 03:42 PM Ordering Location: [id number]: 12/29/2016 04:34 PM Pathologist: Daniel Dubois MD [...] % Neutrophils-Auto Diff 88.9 % Neutrophils-Auto Diff 62633 (H) 2522-7165 /MM3 % Lymphocytes-Auto Diff 4.9 % Lymphocytes-Auto Diff 028 220-5872 /MM3 % Monocytes-Auto Diff 5.3 % Monocytes-Auto [...] % Neutrophils-Auto Diff 84.6 % Neutrophils-Auto Diff 55552 (H) 9177-2823 /MM3 % Lymphocytes-Auto Diff 7.3 % Lymphocytes-Auto Diff 1184 777-2975 /MM3 % Monocytes-Auto Diff 7.4 % Monocytes-Auto [...] Range % Manual Neutrophils 73.9 % Neutrophils-Manual 85990 (H) 5511-2884 /MM3 % Manual Lymphocytes 12.2 % Lymphocytes-Manual 0388 738-1401 /MM3 % Manual Monocytes 5.2 % Monocytes-Manual 847 130-860 /MM3 % Manual Bands 8.7 % Bands-Man Diff 1411 (H) 0-406 /MM3 ANC (Absolute Neutrophil Count) 49563 /MM3 CBC (COMPLETE BLOOD COUNT) Result Value [...] % Manual Neutrophils 75.0 % Neutrophils-Manual 6443 2791-7071 /MM3 % Manual Lymphocytes 11.2 % Lymphocytes-Manual 525 141-4471 /MM3 % Manual Monocytes 6.0 % Monocytes-Manual [...] Neutrophils-Auto Diff 69.9 % Neutrophils-Auto Diff 6100 6395-1255 /MM3 % Lymphocytes-Auto Diff 15.8 % Lymphocytes-Auto Diff 9215 868-7525 /MM3 % Monocytes-Auto Diff 10.4 % Monocytes-Auto [...] DIFFERENTIAL (12/31/2016 3:03 AM)Only the most recent of4 resultswithin the time period is included. Component Value Range % Neutrophils-Auto Diff 69.9 % Neutrophils-Auto Diff 6100 4045-8872 /MM3 % Lymphocytes-Auto Diff 15.8 % Lymphocytes-Auto Diff 5774 418-2716 /MM3 % Monocytes-Auto Diff 10.4 % Monocytes-Auto Diff 910(H) 130-860 /MM3 % Eosinophils-Auto Diff 2.5 % Eosinophils-Auto Diff 220 40-390 /MM3 % Basophils 0.5 % Basophils-Auto Diff 40 10-136 /MM3 % Immature Granulocytes-Auto Diff 0.9 % Immature Granulocytes-Auto Diff 80 /MM3 Specimen Whole Blood CBC (COMPLETE BLOOD COUNT) (12/31/2016 3:03 AM)Only the most recent of4 [...] 8) (12/31/2016 3:03 AM)Only the most recent of8 resultswithin the time period is included. Component [...] DIFFERENTIAL (12/31/2016 3:03 AM)Only the most recent of4 resultswithin the time period is included. Specimen Whole Blood Narrative The following orders were created for panel order CBC WITH DIFFERENTIAL. Procedure Abnormality Status --------- ------ CBC (COMPLETE BLOOD COUNT)[[id number]] AbnormalFinal result DIFFERENTIAL[[id number]] AbnormalFinal result Please view results for these tests on the individual orders. CHEST - AP/PA (12/30/2016 4:41 AM)Only the most recent of3 resultswithin the time period is included. Impressions [...] - Jenna Dec 30, 2016 7:57 AM 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 Procedure: CHEST - AP/PA Technique: Portable AP [...] Value Range Case Report Surgical Pathology Case: [id number] Authorizing Provider:Regina Sapp MD Collected: 12/29/2016 03:42 PM Ordering Location: [facility] Received:12/29/2016 04:34 PM Pathologist: Daniel Dubois MD [...] ECG - EKG 12 LEAD (12/29/2016 10:51 AM) Component Value Range ECG SEVERITY - ABNORMAL [...] LABORATORY) (12/29/2016 7:15 AM)Only the most recent of5 resultswithin the [...] all produce similar clinical syndromes. Treatment of silof-bkknl-rjfgbawffqwevxwzpi with antibiotics or antimotility agents may increase the risk of complications, including hemolytic uremic syndrome, neurologic complications, and toxic megacolon. Aeromonas testing is not routinely performed. Test method: PCR amplification; multi[employer] GI Panel ([employer], BLOVES.) C. DIFFICILE TOXIN SCREEN (12/28/2016 6:41 PM) [...] D3 and 25- hydroxyvitamin D2. Endocrine Society, [place] of Medicine (IOM), and World Health Organization [...] pg/mL Specimen Blood CREATINE KINASE (12/28/2016 11:48 AM) Component Value Range Creatine Kinase 658(H) 39-308 [...] Doppler, Color Flow and image documentation ( [id number]) Ultrasound contrast - Definity([id number]) Inf. Vena Cava (IVC) / Pulm. 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
[2017-03-27 03:54] LABS: BNP * 2117 pg/mL (5-350)
[2017-03-27 05:33] VITALS: BP 72/38
== END 2017-03-27 04:43 | disposition short-term general hospital (02) ==
LOC: ER 02:29
PROC: 4A033R1 Measurement of Arterial Saturation, Peripheral, Percutaneous Approach (ICD-10-PCS; principal; 2017-03-27)
DX: I50.9 Heart failure, unspecified (principal); E16.2 Hypoglycemia, unspecified; N17.9 Acute kidney failure, unspecified; J96.92 Respiratory failure, unspecified with hypercapnia; N18.3 Chronic kidney disease, stage 3 (moderate)

== ENCOUNTER 2017-08-23 02:23 | Emergency (ER) | payer MEDICARE ==
--- NOTE | 2017-08-23 02:44 | ERNOTE ---
Neuro HPI ER Record Date of Service: 08/23/17 Presenting Symptoms: confusion, difficulty walking Time Seen by Provider: 08/23/17 02:35 Source: family Immunizations: IMMUNIZATION HX Immunizations Up to Date Yes History of Influenza Vaccine No Hx Pneumococcal Vaccination No Allergies/Adverse Reactions: Allergies Allergy/AdvReac Type Severity Reaction Status Date / Time atenolol Allergy Verified 08/23/17 02:33 enoxaparin sodium Allergy Verified 08/23/17 02:33 [From Lovenox] gabapentin Allergy Verified 08/23/17 02:33 Home Medications: HOME MEDICATIONS Allopurinol [Zyloprim] 300 mg PO DAILY 10/25/16 [Last Taken Unknown] Carvedilol [Coreg] 25 mg PO BID 10/25/16 [Last Taken Unknown] Glimepiride [Amaryl] 2 mg PO DAILY 10/25/16 [Last Taken Unknown] Polyethylene Glycol 3350 [Miralax] 17 gm PO PRN PRN 10/25/16 [Last Taken Unknown ] Ropinirole HCl 5 mg PO HS 10/25/16 [Last Taken Unknown] Simvastatin 40 mg PO HS 10/25/16 [Last Taken Unknown] Spironolactone [Aldactone] 25 mg PO BID 10/25/16 [Last Taken Unknown] Tamsulosin HCl [Flomax] 0.4 mg PO DAILY 10/25/16 [Last Taken Unknown] Aspirin [Aspirin Enteric Coated] 81 mg PO DAILY 11/20/16 [Last Taken Unknown] Metolazone [Zaroxolyn] 2.5 mg PO DAILY PRN 11/20/16 [Last Taken Unknown] Potassium Chloride [Klor-Con M20] 20 meq PO DAILY 11/20/16 [Last Taken Unknown] Terazosin HCl [Hytrin] 1 mg PO DAILY 11/20/16 [Last Taken Unknown] Torsemide [Demadex] 80 mg PO BID 11/20/16 [Last Taken Unknown] oxyCODONE HCL/ACETAMINOPHEN [Percocet 5 MG/325 MG] 2 tab PO QID PRN 11/20/16 [ Last Taken Unknown] Lisinopril [Zestril] 10 mg PO DAILY #30 tablet 02/27/17 [Last Taken Unknown] Warfarin Sodium [Coumadin] 4 mg PO DAILY #30 tablet 02/27/17 [Last Taken Unknown ] - History of Present Illness Narrative: This is a 67-year-old male with a history of CHF kidney failure and multiple other medical problems was brought to the emergency department at 2:00 in the morning. The patient's says that he has been acting confused for 3 days. He says he will wake up and start acting abnormally. He will talk about things that don't make any sense. He seems to be moving his extremities okay. She has not noted any focal weakness. The patient is stuporous here. He is unable to follow commands or questions. She says he's been taking all of his medicine but has not been urinating well over the last several days. - Patient's Past Medical History Patient History - Medical: Diabetes Type 2, Osteoarthritis, Renal Failure, Other Patient History - Cardiac/Respiratory: Atrial Fibrillation, Coronary Heart Disease, CHF, CVA/Stroke, Myocardial Infarction, Pneumonia, CPAP/BiPAP Home Use , Sleep Apnea, Other Patient History - Cancer: No Hx of Cancer Patient History - Surgical Procedures: Appendectomy, Cardiac stent, Pacemaker, Other Patient History - Other: None - Family History Mother Family History - Medical: No pertinent hx Family History - Cardiac/Respiratory: Hypertension, Other Family History - Cancer: No pertinent family hx Father Family History - Medical: Family History - Cardiac/Respiratory: Coronary Heart Disease, Other Family History - Cancer: Other - Social History Living Situations: spouse Abuse History: No History of abuse Psych History: No pertinent hx Smoking Status: Never smoker Have you smoked in the past 12 months: No Do you dip or chew tobacco: No Alcohol Use: none Drug Use: none - Immunizations Immunizations Up to Date: Yes Hx Pneumococcal Vaccination: No History of Influenza Vaccine: No Physical Exam - Physical Exam General Appearance: Absent: other - arousable with persistent stimulation wresting with eyes closed. Head Exam: Present: normal inspection, no evidence of injury Eye Exam: Normal inspection: bilateral, PERRL: bilateral Ears, Nose, Throat: Present: normal ENT inspection, normal pharynx Neck: Present: normal inspection, nontender, other - JVD to the angle Respiratory: Present: other - crackles fci up bilaterally. Tachypnea decreased air entry Cardiovascular/Chest: Present: regular rate, rhythm, no murmur, normal peripheral pulses Gastrointestinal/Abdominal: Present: other - abdomen is distended no apparent tenderness Back Exam: Present: normal inspection, normal range of motion, no CVA tenderness Extremity Exam: Present: normal inspection, non-tender, other Neurological Exam: Present: other - patient is stuporous. Does not respond with appropriate responses to questions. Eyes closed but opens to voice. Strength is generally decreased with no focal deficits Skin Exam: Present: normal color, warm/dry Lymphatic Exam: Present: no adenopathy ED Progress - Vital Signs Patient's Vital Signs:: I have reviewed the patient's vital signs. Vital Signs: Vital Signs 08/23/17 02:24 Pulse Rate 69 Respiratory 35 H Rate Blood Pressure 126/73 O2 Sat by Pulse 87 L Oximetry - EKG EKG: other - EKG shows a ventricularly paced rhythm at 60 no further information is obtainable - X-Ray X-Ray #1 X-Ray: chest Interpretation: Interp. by me X-ray Comments: Limited exam. Does not include apices. Vascular congestion consistent with CHF no definite infiltrate repeat x-rays being done for intubation and to get the apices - Progress/Reassessment Chief Complaint: Altered Mental Status Procedures Intubation Method: orotracheal Tube Size (cm): 8.0 Medications: Succinylcholine, Other - etomidate Breath Sounds after Intubation: equal Intubation Complications: no complications Post Intubation Xray: Yes Complications: Pt ra procedure well Date and Time: 404 right femoral triple-lumen catheter was placed under full sterile conditions. Informed consent obtained timeout was called good flow all ports Plan - Plan Plan: Patient was moved to 4 L nasal cannula. This resulted in a pulse ox of 91-92%. Was moved to 15 L. His saturations increased to 96%. I've just received back the ABG results CO2 is 71 PO2 65 on 4 L bicarbonate 33 pH of 7.29 Decision was made to intubate the patient as he is hypercarbic and has deteriorating mental status rather than improving. He is not a candidate for BiPAP due to the stuporous condition Departure Clinical Impression: Respiratory failure, Congestive heart failure - Departure Disposition: [facility] Condition: Critical Referrals: Skyler Mi MD [Primary Care Provider] -
[2017-08-23 02:59] LABS: Hemoglobin 12.2 gm/dL (13.5-18.0); Mean Cell Volume 87.2 fl (78-100); Mean Corpuscular Hemoglobin 27.3 pg (27-31); Mean Corpuscular Hgb Conc 31.3 g/dl (32-36); Mean Platelet Volume 9.6 fl (6.0-9.5); Neutrophil # 17.7 K/mm3 (1.3-6.0); Neutrophil % 87.5 % (42-75.0); Platelet Count 247 K/mm3 (150-450); Red Blood Count 4.47 M/mm3 (4.7-6.0); Red Cell Distribution Width 15.9 % (11.5-14.0); White Blood Count 20.3 K/mm3 (4.0-10.5)
[2017-08-23 03:08] LABS: Urine Bilirubin Negative (NEGATIVE); Urine Blood 25 /ul (NEGATIVE); Urine Ketone Negative (NEGATIVE); Urine Nitrite Negative (NEGATIVE); Urine Protein 15 mg/dL (NEGATIVE); Urine Urobilinogen Normal (NORMAL)
[2017-08-23] MEDS ORDERED: MIDAZOLAM HCL/PF 5 MG/ML VIAL ONE ×3 (03:08→04:27)
[2017-08-23 03:11] LABS: Prothrombin Time (Patient) 33.7 Seconds (9.0-11.0)
[2017-08-23 03:12] LABS: INR 3.33 INR (0.90-1.10)
[2017-08-23 03:22] LABS: Urine Appearance Clear; Urine Bacteria 4+; Urine Color Yellow; Urine RBC 0-5 /hpf (0-5)
[2017-08-23] MEDS ORDERED: MIDAZOLAM HCL/PF 5 MG/ML VIAL IV ONE ×4 (03:33→04:27)
[2017-08-23] MEDS ORDERED: SUCCINYLCHOLINE CHLORIDE 20 MG/ML VIAL IV ONE (03:33)
[2017-08-23] MEDS ORDERED: ETOMIDATE 2 MG/ML VIAL IV ONE (03:33)
[2017-08-23 03:34] LABS: ALT 19 U/L (19-67); AST 18 U/L (0-48); Albumin * 3.2 gm/dl (3.4-5.0); Alkaline Phosphatase * 162 U/L (50-170); Anion Gap 10.5 mmol/L (6.8-13.8); BNP * 1984 pg/mL (5-350); BUN/Creatinine Ratio 17.8 (9.0-21.6); Bilirubin, Total 0.8 mg/dL (0.0-1.1); Blood Urea Nitrogen 27 mg/dL (6-23); Ca. Corrected For Albumin 8.7 mg/dL (8.4-10.2); Calcium * 8.4 mg/dL (7.9-10.9); Carbon Dioxide 32.5 mmol/L (24-32.6); Chloride 98 mmol/L (97-106); Glucose * 218 mg/dL (70-110); Sodium 137 mmol/L (132-142); Total Protein 7.5 gm/dL (6.2-8.2)
[2017-08-23 03:35] LABS: Troponin I Less than 0.017 ng/ml (0.00-0.10)
[2017-08-23] MEDS ORDERED: FUROSEMIDE 10 MG/ML VIAL IV ONE (03:43)
[2017-08-23] MEDS ORDERED: MIDAZOLAM HCL/PF 5 MG/ML VIAL IM ONE (04:08)
[2017-08-23] MEDS ORDERED: FUROSEMIDE 10 MG/ML VIAL ONE (04:25)
[2017-08-23] MEDS ORDERED: MIDAZOLAM HCL IV ONE (04:30)
[2017-08-23] MEDS ORDERED: NORMAL SALINE IV ONE (04:30)
[2017-08-23 04:41] VITALS: BP 113/59
== END 2017-08-23 04:43 | disposition short-term general hospital (02) ==
LOC: ER 02:23
PROC: 0BH17EZ Insertion of Endotracheal Airway into Trachea, Via Natural or Artificial Opening (ICD-10-PCS; principal; 2017-08-23)
PROC: 4A033R1 Measurement of Arterial Saturation, Peripheral, Percutaneous Approach (ICD-10-PCS; 2017-08-23)
PROC: 0T9B70Z Drainage of Bladder with Drainage Device, Via Natural or Artificial Opening (ICD-10-PCS; 2017-08-23)
PROC: 06HM33Z Insertion of Infusion Device into Right Femoral Vein, Percutaneous Approach (ICD-10-PCS; 2017-08-23)
DX: I50.9 Heart failure, unspecified (principal); J96.90 Respiratory failure, unspecified, unspecified whether with hypoxia or hypercapnia